=== PATIENT | female | born 1950 | race Caucasian/White ===

== ENCOUNTER 2021-05-01 12:16 | Emergency (ER) | payer MEDICARE, MEDICAID, SELFPAY ==
[2021-05-01 12:24] VITALS: BP 180/71; PULSE 60; RESP 17; TEMP 37.2; O2SAT 100
--- NOTE | 2021-05-01 12:45 | XR_ITS ---
WS: [email or web address] Right shoulder, 2 views, 05/01/2021 Clinical Data: pain Comparison: Right shoulder, 01/27/2016. Findings: No fractures or dislocations are seen. There is osteoarthritic change of the humeral head with a medi al spur. There is irregularity of the glenoid. The AC joint is normal. The adjacent right clavicle, r ight scapula and ribs are normal. The soft tissues are unremarkable. XR/XR shoulder RT min 2V* 26110 Impression: Osteoarthritis of the right shoulder joint.
--- NOTE | 2021-05-01 12:45 | XR_ITS ---
WS: [email or web address] Right forearm, AP and lateral views, 05/01/2021 Clinical Data: pain Comparison: None. Findings: No fractures or dislocations are seen. The soft tissues are normal. The visualized right wrist and el bow show no obvious abnormalities. The radius and ulna were demineralized. XR/XR forearm RT 2V 42426 Impression: Negative for right forearm fracture.
--- NOTE | 2021-05-01 12:45 | XR_ITS ---
WS: [email or web address] Right elbow, 2 views, 05/01/2021 Clinical Data: pain Comparison: None. Findings: No fractures or dislocations are seen. The radial head is normal. The soft tissues are unremarkable. XR/XR elbow RT 2V 74120 Impression: Negative right elbow.
--- NOTE | 2021-05-01 12:45 | XR_ITS ---
WS: [email or web address] Right arm and humerus, 2 views, AP and lateral views, 05/01/2021 Clinical Data: pain Comparison: None. Findings: No fractures or dislocations are seen. The shaft of the humerus is intact. The soft tissues are norm al. XR/[place] [address] Impression: Negative right arm and humerus.
--- NOTE | 2021-05-01 12:46 | ECG_ITS ---
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 Measurements Intervals [place] Rate: 68 P: 60 DC: 160 QRS: -3 QRSD: 154 T: 21 QT: 415 QTc: 443 Interpretive Statements SINUS RHYTHM RIGHT BUNDLE BRANCH BLOCK [120+ ms QRS DURATION, UPRIGHT V1, 40+ ms S IN I/aVL/V4/V5/V6] Compared to ECG 02/26/2018 05:05:21 Sinus bradycardia no longer present Sinus arrhythmia no longer present Electronically Signed On 05-01-2021 20:46:27 ROLL ICER MACHINE by Ivan Weinstein M.D. [email or web address]
--- NOTE | 2021-05-01 13:15 | ED_ITS ---
HPI - General Adult General: Chief complaint: General Medical Stated complaint: R SIDED PAIN Time Seen by Provider: 05/01/21 12:23 History of Present Illness: Patient is a 70-year-old female history of residual right-sided deficit from prior stroke currently presenting to the emergency room at [facility] for complaints of 2 week of right arm pain and decreased range of motion. She was seen by two previous primary care provider at [facility] insisted coming to the emergency room for evaluation of her arms. Patient reports that her symptoms has been going on for the last 2 weeks. Patient reports pain in the right arm with decreased range of motion. In addition, patient report shortness of breath without any associated chest pain. Patient is on Plavix daily for heart. Onset: 2 weeks ago Duration:ongoing Location:home Severity:moderate Associated symptoms: Deny chest pain, dyspnea, nausea, rash, palpitations or vomiting Review of Systems Const: Denies: fever(s) or chills Eyes: Denies: change in vision ENMT: Denies: mouth pain Card: Denies: chest pain or palpitations Resp: Denies: dyspnea or non-productive cough GI: Denies: abdominal pain, nausea, vomiting or diarrhea : Denies: dysuria Musc: Reports: extremity pain (+R ) Skin/Breast: Denies: rash or new lesions Neuro: Denies: weakness in extremities Psych: Reports: other (Normal mood) Russel/Lymph: Denies: easy bruising Physical Exam Const: COMMON NORMALS: alert HENMT: COMMON NORMALS: atraumatic HEAD & SCALP: atraumatic MOUTH: moist mucous membranes not abnormal Eye: COMMON NORMALS: EOMs intact bilaterally and conjunctivae normal CONJUNCTIVA: Yes conjunctivae normal Neck/C-Spine: COMMON NORMALS: full ROM and supple Resp: COMMON NORMALS: normal respiratory effort and clear to auscultation bilaterally AUSCULTATION: clear to auscultation bilaterally Cardio: COMMON NORMALS: regular rate RATE: regular rate GI: COMMON NORMALS: Soft to palpation and non-tender PALPATION: Yes Soft to palpation Extremity: COMMON NORMALS: full ROM Neuro: SENSORIUM/ORIENTATION: Yes alert MOTOR EXAM: No Abnormal motor strength present and Other motor observations present (no focal motor deficits) Psych: COMMON NORMALS: speech normal SPEECH: Yes normal speech MOOD & AFFECT: Yes euthymic mood Course Vital Signs: Vital signs: Vital Signs Temperature 97.7 F 05/01/21 18:50 Pulse Rate 65 05/01/21 18:50 Respiratory Rate 18 05/01/21 18:50 Blood Pressure 131/63 05/01/21 18:50 Pulse Oximetry 98 05/01/21 18:50 [facility] - General Adult Medical Decision Making 70F w/ history of residual right-sided deficit from prior stroke presenting with L arm and dyspnea. Imaging studies negative. CTA negative for PE. DVT study negative. Doubt ACS/PE or other emergent causes of chest pain. No suspicion for aortic dissection given no widened mediastinum, 2+ upper extremity pulses, or tearing pain. No suspicion for PE given no pleuritic chest pain, recent immobilization or surgery hemoptysis, or other VTE risk factors. EKG is non- ischemic. XR normal. Rx: norflex, tylenol, lidocaine patch, and menthol PRN pain Disposition: Discharge. Patient counseled regarding diagnostic impression, treatment plan. Patient given ED strict return precautions to return for continuation, worsening, or development of new symptoms. Instructed to f/u w/ PCP regarding symptoms today. Patient verbalized understanding. Lab Data : 05/01/21 13:14 05/01/21 14:00 Radiology Impressions Elbow X-Ray 05/01/21 12:45 Impression: Negative right elbow. Forearm X-Ray 05/01/21 12:45 Impression: Negative for right forearm fracture. Humerus X-Ray 05/01/21 12:45 Impression: Negative right arm and humerus. Shoulder X-Ray 05/01/21 12:45 Impression: Osteoarthritis of the right shoulder joint. Venous Duplex 05/01/21 13:40 IMPRESSION: No evidence of deep vein thrombosis. Chest CTA 05/01/21 16:08 IMPRESSION: 1. Somewhat limited exam for evaluation of the subsegmental branch of the pulmonary arteries given body habitus and beam hardening artifact, however, exam is negative for large central or segmental branch pulmonary embolus. 2. Patchy bilateral atelectasis versus infiltrate. Laboratory Results WBC 9.0 10^3/uL (4.0-10.0) 05/01/21 13:14 RBC 4.17 10^6/uL (4.1-5.3) 05/01/21 13:14 Hgb 12.0 g/dL (11.5-15.3) 05/01/21 13:14 Hct 44.4 % (37.0-47.0) 05/01/21 13:14 MCV 106.5 fl (81-99) H 05/01/21 13:14 MCH 28.8 pg (28.0-34.0) 05/01/21 13:14 MCHC 27.0 g/dL (30.0-36.0) L 05/01/21 13:14 RDW 12.7 % (12.1-15.1) 05/01/21 13:14 Plt Count 175 10^3/cmm (130-400) 05/01/21 13:14 MPV 9.3 fL (7.4-10.4) 05/01/21 13:14 Neut % (Auto) 67.9 % 05/01/21 13:14 Lymph % (Auto) 24.1 % 05/01/21 13:14 [place] % (Auto) 6.3 % 05/01/21 13:14 Eos % (Auto) 1.0 % 05/01/21 13:14 Baso % (Auto) 0.4 % 05/01/21 13:14 Neut # (Auto) 6.12 10^3/uL (1.8-7.7) 05/01/21 13:14 Lymph # (Auto) 2.2 10^3/uL (0.8-4.8) 05/01/21 13:14 [place] # (Auto) 0.6 10^3/uL (0.2-0.9) 05/01/21 13:14 Eos # (Auto) 0.1 10^3/uL (0.0-0.8) 05/01/21 13:14 Baso # (Auto) 0.0 10^3/uL (0.0-0.1) 05/01/21 13:14 Nucleated RBC % (auto) 0 % 05/01/21 13:14 Nucleated RBCs # 0.0 /100WBC 05/01/21 13:14 D-Dimer 0.92 ug/mIFEU (0-0.59) H 05/01/21 15:25 Sodium 136 mmol/L (136-145) 05/01/21 14:00 Potassium 4.7 mmol/L (3.5-5.1) 05/01/21 14:00 Chloride 98 mmol/L (98-107) 05/01/21 14:00 Carbon Dioxide 32 mmol/L (22-29) H 05/01/21 14:00 Anion Gap 10.7 (5-19) 05/01/21 14:00 BUN 16 mg/dL (8-23) 05/01/21 14:00 Creatinine 1.0 mg/dL (0.5-0.9) H 05/01/21 14:00 GFR Calculation Not Reportable 05/01/21 14:00 Glucose 87 mg/dL (65-115) 05/01/21 14:00 Calculated Osmolality 283 mOsm/kg (285-295) L 05/01/21 14:00 Calcium 8.6 mg/dL (8.5-10.5) 05/01/21 14:00 Imaging Data Other Imaging: Radiologist's impression: [address] [address] [address] Scan Report Signed Patient: Monica Mccauley Unit #: [id number] : 1950 Age/Sex: 70 / F ADM Date: 05/01/21 Loc: ER Room/Bed: Attending Dr: Ordering Provider/Ordering MD: Jess Martinez MD Date of Service: 05/01/21 Procedure(s): CT angio chest PE protcl 44687 Accession Number(s): [id number] Report Number: [id number] PROCEDURE INFORMATION: Exam: CTA Chest With Contrast Exam date and time: 05/01/2021 4:08 PM Age: 70 years old Clinical indication: Shortness of breath; Patient HX: SOB; Additional info: Eval for pe TECHNIQUE: Imaging protocol: Computed tomographic angiography of the chest with contrast. 3D rendering (Not supervised by radiologist): MIP and/or 3D reconstructed images were created by the technologist. Radiation optimization: All CT scans at this facility use at least one of these dose optimization techniques: automated exposure control; mA and/or kV adjustment per patient size (includes targeted exams where dose is matched to clinical indication); or iterative reconstruction. Contrast material: OMNI 350; Contrast volume: 73 ml; Contrast route: INTRAVENOUS (IV);? COMPARISON: CR Chest 1 [place] [id number] 03/08/2018 6:19 AM RADIATION DOSE METRICS: Total DLP (mGy-cm): 513.06 FINDINGS: Pulmonary arteries: Somewhat limited exam for evaluation of the subsegmental branch of the pulmonary arteries given body habitus and beam hardening artifact, however, exam is negative for large central or segmental branch pulmonary embolus. Aorta: Unremarkable. No aortic aneurysm. No aortic dissection. Lungs: Patchy bilateral atelectasis versus infiltrate. Pleural spaces: Unremarkable. No pneumothorax. No pleural effusion. Heart: Unremarkable. No cardiomegaly. No pericardial effusion. Lymph nodes: Unremarkable. No enlarged lymph nodes. Bones/joints: Unremarkable. No acute fracture. Soft tissues: Unremarkable. CT/CT angio chest PE protcl 55711 IMPRESSION: 1. Somewhat limited exam for evaluation of the subsegmental branch of the pulmonary arteries given body habitus and beam hardening artifact, however, exam is negative for large central or segmental branch pulmonary embolus. 2. Patchy bilateral atelectasis versus infiltrate. ? Dictated By: Bautista Doty MD Signed By: Bautista Doty MD Signed Date/Time: 05/01/211903 DD/ [address] [place] [address] Ultrasound Report Signed Patient: Monica Mccauley Unit #: [id number] : 1950 Age/Sex: 70 / F ADM Date: 05/01/21 Loc: ER Room/Bed: Attending Dr: Ordering Provider/Ordering MD: Jess Martinez MD Date of Service: 05/01/21 Procedure(s): [place] [address] Accession Number(s): [id number] Report Number: [id number] PROCEDURE INFORMATION: Exam: US Duplex Right Lower Extremity Veins, Limited Exam date and time: 05/01/2021 1:40 PM Age: 70 years old Clinical indication: Pain; Arm, upper; Right; Additional info: Eval for any ue dvt TECHNIQUE: Imaging protocol: Real-time Duplex ultrasound of the Right Lower Extremity with 2-D garcia scale, color Doppler flow and spectral waveform analysis with image documentation. Limited exam was focused on the right lower extremity veins. COMPARISON: No relevant prior studies available. FINDINGS: Right deep veins: Unremarkable. The common femoral, femoral, proximal profunda femoral and popliteal veins are patent without thrombus. Normal Doppler waveforms. Normal compressibility and/or augmentation response.? Right superficial veins: Unremarkable. Saphenofemoral junction is patent without thrombus. Soft tissues: Unremarkable. US/[place] [address] IMPRESSION: No evidence of deep vein thrombosis. ? Dictated By: John Lundy DO Signed By: John Lundy DO Signed Date/Time: 05/01/21 1711 DD/ [address] [place] [address] XRay Report Signed Patient: Monica Mccauley Unit #: [id number] : 1950 Age/Sex: 70 / F ADM Date: 05/01/21 Loc: ER Room/Bed: Attending Dr: Ordering Provider/Ordering MD: Jess Martinez MD Date of Service: 05/01/21 Procedure(s): XR shoulder RT min 2V* 42451 Accession Number(s): [id number] Report Number: [id number] WS: [email or web address] Right shoulder, 2 views, 05/01/2021 Clinical Data: pain Comparison: Right shoulder, 01/27/2016. Findings: No fractures or dislocations are seen. There is osteoarthritic change of the humeral head with a medial spur. There is irregularity of the glenoid. The AC joint is normal. The adjacent right clavicle, right scapula and ribs are normal. The soft tissues are unremarkable. XR/XR shoulder RT min 2V* 49247 Impression: Osteoarthritis of the right shoulder joint. ? Dictated By: Litzy Haines MD Signed By: Litzy Haines MD Signed Date/Time: 05/01/21 1406 DD/ [address] [address] XRay Report Signed Patient: Monica Mccauley Unit #: [id number] : 1950 Age/Sex: 70 / F ADM Date: 05/01/21 Loc: ER Room/Bed: Attending Dr: Ordering Provider/Ordering MD: Jess Martinez MD Date of Service: 05/01/21 Procedure(s): [place] [address] Accession Number(s): [id number] Report Number: [id number] WS: [email or web address] Right arm and humerus, 2 views, AP and lateral views, 05/01/2021 Clinical Data: pain Comparison: None. Findings: No fractures or dislocations are seen.? The shaft of the humerus is intact. The soft tissues are normal. XR/[place] [address] Impression: Negative right arm and humerus. ? ? Dictated By: Litzy Haines MD Signed By: Litzy Haines MD Signed Date/Time: 05/01/21 [facility] DD/ [address] [place] [address] CT Scan Report Signed Patient: Monica Mccauley Unit #: [id number] : 1950 Age/Sex: 70 / F ADM Date: 05/01/21 Loc: ER Room/Bed: Attending Dr: Ordering Provider/Ordering MD: Jess Martinez MD Date of Service: 05/01/21 Procedure(s): CT angio chest PE protcl 61446 Accession Number(s): [id number] Report Number: [id number] PROCEDURE INFORMATION: Exam: CTA Chest With Contrast Exam date and time: 05/01/2021 4:08 PM Age: 70 years old Clinical indication: Shortness of breath; Patient HX: SOB; Additional info: Eval for pe TECHNIQUE: Imaging protocol: Computed tomographic angiography of the chest with contrast. 3D rendering (Not supervised by radiologist): MIP and/or 3D reconstructed images were created by the technologist. Radiation optimization: All CT scans at this facility use at least one of these dose optimization techniques: automated exposure control; mA and/or kV adjustment per patient size (includes targeted exams where dose is matched to clinical indication); or iterative reconstruction. Contrast material: OMNI 350; Contrast volume: 73 ml; Contrast route: INTRAVENOUS (IV);? COMPARISON: CR Chest 1 [place] [id number] 03/08/2018 6:19 AM RADIATION DOSE METRICS: Total DLP (mGy-cm): 513.06 FINDINGS: Pulmonary arteries: Somewhat limited exam for evaluation of the subsegmental branch of the pulmonary arteries given body habitus and beam hardening artifact, however, exam is negative for large central or segmental branch pulmonary embolus. Aorta: Unremarkable. No aortic aneurysm. No aortic dissection. Lungs: Patchy bilateral atelectasis versus infiltrate. Pleural spaces: Unremarkable. No pneumothorax. No pleural effusion. Heart: Unremarkable. No cardiomegaly. No pericardial effusion. Lymph nodes: Unremarkable. No enlarged lymph nodes. Bones/joints: Unremarkable. No acute fracture. Soft tissues: Unremarkable. CT/CT angio chest PE protcl 53203 IMPRESSION: 1. Somewhat limited exam for evaluation of the subsegmental branch of the pulmonary arteries given body habitus and beam hardening artifact, however, exam is negative for large central or segmental branch pulmonary embolus. 2. Patchy bilateral atelectasis versus infiltrate. ? Dictated By: Bautista oDty MD Signed By: Bautista Doty MD Signed Date/Time: 05/01/211903 DD/ 1608 Discharge Plan Discharge Condition: Stable Prescriptions: No Action Lasix 40 mg Tablet 40 mg PO DAILY 0RF calcium 600 mg Capsule 600 mg PO DAILY 0RF acetaminophen 325 mg Tablet 650 mg PO Q6H PRN (Reason: Pain) 0RF carvedilol 6.25 mg Tablet 6.25 mg PO BID 0RF Rx Instructions: must administer with a meal/food atorvastatin 10 mg Tablet 5 mg PO DAILY@1999 0RF Senna-S 8.6-50 mg Tablet 1 tab PO BID 0RF Plavix 75 mg Tablet 75 mg PO DAILY 0RF tramadol 50 mg Tablet 50 mg PO Q6H PRN (Reason: Pain) 0RF Xanax 0.25 mg Tablet 0.25 mg PO Q8H PRN (Reason: Anxiety) 0RF levothyroxine 125 mcg Tablet 125 mcg PO DAILY 0RF docusate sodium 100 mg Capsule 100 mg PO BID 0RF diltiazem HCl 240 mg Tablet Extended Release 24 Hr 240 mg PO DAILY 0RF Referrals: [facility] [Other] Coding Level of Care Code ED Data Warehouse Architect for Chg Fwd Exam Comprehensive
[2021-05-01 13:34] LABS: Basophils % 0.4 %; Eosinophils # 0.1 10^3/uL (0.0-0.8); Hematocrit 44.4 % (37.0-47.0); Lymphocytes # 2.2 10^3/uL (0.8-4.8); Lymphocytes % 24.1 %; Mean Corpuscular Hemoglobin 28.8 pg (28.0-34.0); Mean Corpuscular Volume 106.5 fl (81-99); Mean Platelet Volume 9.3 fL (7.4-10.4); Monocytes # 0.6 10^3/uL (0.2-0.9); Monocytes % 6.3 %; Neutrophils # 6.12 10^3/uL (1.8-7.7); Neutrophils % 67.9 %; Nucleated Red Blood Cells % 0 %; Platelet Count 175 10^3/cmm (130-400); Red Blood Count 4.17 10^6/uL (4.1-5.3); Red Cell Distribution Width 12.7 % (12.1-15.1)
--- NOTE | 2021-05-01 13:40 | USR_ITS ---
PROCEDURE INFORMATION: Exam: US Duplex Right Lower Extremity Veins, Limited Exam date and time: 05/01/2021 1:40 PM Age: 70 years old Clinical indication: Pain; Arm, upper; Right; Additional info: Eval for any ue dvt TECHNIQUE: Imaging protocol: Real-time Duplex ultrasound of the Right Lower Extremity with 2-D garcia scale, color Doppler flow and spectral waveform analysis with image documentation. Limited exam was focused on the right lower extremity veins. COMPARISON: No relevant prior studies available. FINDINGS: Right deep veins: Unremarkable. The common femoral, femoral, proximal profunda femoral and popliteal veins are patent without thrombus. Normal Doppler waveforms. Normal compressibility and/or augmentation response. Right superficial veins: Unremarkable. Saphenofemoral junction is patent without thrombus. Soft tissues: Unremarkable. US/[place] [address] IMPRESSION: No evidence of deep vein thrombosis.
[2021-05-01 14:27] LABS: Blood Urea Nitrogen 16 mg/dL (8-23); Calcium 8.6 mg/dL (8.5-10.5); Carbon Dioxide 32 mmol/L (22-29); Chloride 98 mmol/L (98-107); Glucose 87 mg/dL (65-115); Osmolality Calculated 283 mOsm/kg (285-295); Sodium 136 mmol/L (136-145)
[2021-05-01 14:28] LABS: Anion Gap 10.7 (5-19); Potassium 4.7 mmol/L (3.5-5.1)
[2021-05-01 15:55] LABS: D Dimer 0.92 ug/mIFEU (0-0.59)
--- NOTE | 2021-05-01 16:08 | CTR_ITS ---
PROCEDURE INFORMATION: Exam: CTA Chest With Contrast Exam date and time: 05/01/2021 4:08 PM Age: 70 years old Clinical indication: Shortness of breath; Patient HX: SOB; Additional info: Eval for pe TECHNIQUE: Imaging protocol: Computed tomographic angiography of the chest with contrast. 3D rendering (Not supervised by radiologist): MIP and/or 3D reconstructed images were created by the technologist. Radiation optimization: All CT scans at this facility use at least one of these dose optimization techniques: automated exposure control; mA and/or kV adjustment per patient size (includes targeted exams where dose is matched to clinical indication); or iterative reconstruction. Contrast material: OMNI 350; Contrast volume: 73 ml; Contrast route: INTRAVENOUS (IV); COMPARISON: CR Chest 1 [place] [id number] 03/08/2018 6:19 AM RADIATION DOSE METRICS: Total DLP (mGy-cm): 513.06 FINDINGS: Pulmonary arteries: Somewhat limited exam for evaluation of the subsegmental branch of the pulmonary arteries given body habitus and beam hardening artifact, however, exam is negative for large central or segmental branch pulmonary embolus. Aorta: Unremarkable. No aortic aneurysm. No aortic dissection. Lungs: Patchy bilateral atelectasis versus infiltrate. Pleural spaces: Unremarkable. No pneumothorax. No pleural effusion. Heart: Unremarkable. No cardiomegaly. No pericardial effusion. Lymph nodes: Unremarkable. No enlarged lymph nodes. Bones/joints: Unremarkable. No acute fracture. Soft tissues: Unremarkable. CT/CT angio chest PE protcl [id number] IMPRESSION: 1. Somewhat limited exam for evaluation of the subsegmental branch of the pulmonary arteries given body habitus and beam hardening artifact, however, exam is negative for large central or segmental branch pulmonary embolus. 2. Patchy bilateral atelectasis versus infiltrate.
[2021-05-01] MEDS: iohexol 350 mg/mL 100 mL Btl IV (18:36)
[2021-05-01 18:46] VITALS: RESP 20
[2021-05-01] MEDS: morphine 4 mg/mL SDV 1 mL IVP (18:46)
[2021-05-01 18:50] VITALS: BP 131/63; PULSE 65; RESP 18; TEMP 36.5; O2SAT 98
[2021-05-01 20:41] VITALS: BP 142/89; PULSE 67; RESP 20; TEMP 36.7; O2SAT 96
== END 2021-05-01 20:44 | disposition home or self-care (01) ==
PROVIDERS: Emergency Provider Emergency Medicine
DX: M79.601 Pain in right arm (principal); Z79.02 Long term (current) use of antithrombotics/antiplatelets
CPT/HCPCS: 71275; 73030; 73060; 73070; 73090; 80048; 85025; 85378; 93005; 93971; 96374; 99283; J2270; Q9967

== ENCOUNTER 2021-11-25 11:01 | Inpatient (IN) | payer MEDICARE, MEDICAID, SELFPAY ==
[2021-11-25] VITALS (35 sets, daily range): BP systolic 122–153; BP diastolic 60–85; PULSE 57–121; RESP 13–37; TEMP 36.6–36.9; O2SAT 80–98; BMI 45.7
--- NOTE | 2021-11-25 11:04 | XR_ITS ---
WS: [email or web address] XR chest 1V portable [id number] REASON FOR EXAM: dyspnea FINDINGS: There is significant tortuosity and ectasia of the thoracic aorta and cardiomegaly. There are reticular interstitial changes throughout both lungs with fluid in the minor fissure on the right. XR/XR chest 1V portable [id number] IMPRESSION: Abnormal chest most compatible with congestive heart failure.
--- NOTE | 2021-11-25 11:15 | CT_ITS ---
WS: [id number] CT CHEST ANGIOGRAPHY WITH REFORMATS HISTORY: hypoxemia, dyspnea TECHNIQUE: Contiguous axial images are obtained through the chest during arterial injection of intrav enous contrast. Images are reconstructed to evaluate the pulmonary arteries. MIP imaging also reviewe d. All CT scans at [facility] use at least one of these dose optimization techniques: automat ed exposure control; mA and/or kV adjustment per patient size (includes targeted exams where dose is matched to clinical indication); or iterative reconstruction. CONTRAST: Omnipaque 350; 95 mL IV. DLP: 468.01 mGy.cm COMPARISON: 05/01/2021 Limited evaluation of the chest and pulmonary arteries due to body habitus. There is significant cresencio fact through the chest secondary to enlarged body habitus. No large central pulmonary embolism is viktoriya ntified. Beyond the lobar branches the opacification is limited. Variable density within the arteries for which emboli cannot be excluded. There is also motion artifact. Pulmonary artery is top normal s ize. Atherosclerosis aorta. No aneurysmal dilatation. Study is inadequate to exclude aortic dissectio n. Heart is enlarged with mild RIGHT heart strain. Lung volumes are decreased due to poor inspiration. Bilateral multi lobar pulmonary opacifications wi th areas of atelectasis. No pneumothorax. Very small LEFT pleural effusion. No abnormality in the upper abdomen. Thoracic scoliosis. CT/CT angio chest PE protcl [id number] IMPRESSION: 1. Significantly limited evaluation of the thorax on this examination due to b kalyani habitus. 2. Centrally no large pulmonary embolism. 3. Mild pulmonary hypertension and RIGHT heart strain. 4. Multi lobar pulmonary opacifications. Probably combination of pneumonia, pn eumonitis and atelectasis. 5. Very small LEFT pleural effusion.
--- NOTE | 2021-11-25 11:19 | ED_ITS ---
HPI - General Adult General: Chief complaint: Shortness of Breath/Dyspnea Stated complaint: resp distress Time Seen by Provider: 11/25/21 11:04 History of Present Illness: Patient is a 71-year-old female with history of CHF, COPD, dementia, CAD and hypothyroidism who presents the emergency room for concerns respiratory distress. Per EMS, patient has been residing at a residential and over the last 3 days, patient has had increasing shortness of breath. Earlier today, EMS was called patient was brought to the emergency room. In route, EMS report the patient had an O2 sat in the low 80s that improved with DuoNeb and oxygen. On arrival, patient was noted to be satting 78% on room room air with good wavelength. Patient is placed on high flow with improvement in symptoms. Patient is AAO x1 to self only occasionally answer questions. Patient denies any chest pain, abdominal complaints 1 diarrhea melena hematochezia or complaints. Patient reports cough. Onset:3 days ago Duration:3 days Location:home Severity:moderate Associated symptoms: Reports dyspnea; Deny chest pain, nausea, rash, palpitations or vomiting Review of Systems Const: Denies: fever(s) or chills Eyes: Denies: change in vision ENMT: Denies: mouth pain Card: Denies: chest pain or palpitations Resp: Reports: dyspnea; Denies: non-productive cough GI: Denies: abdominal pain, nausea, vomiting or diarrhea : Denies: dysuria Musc: Denies: extremity pain Skin/Breast: Denies: rash or new lesions Neuro: Denies: weakness in extremities Psych: Reports: other (Normal mood) Russel/Lymph: Denies: easy bruising PFS ED 2 PFSH: Medical History CAD (coronary artery disease) CHF (congestive heart failure) COPD (chronic obstructive pulmonary disease) Hypothyroidism Social History Smoking and tobacco status: never smoked Alcohol intake: never Substance/Drug Use: never Physical Exam Const: COMMON NORMALS: alert HENMT: COMMON NORMALS: atraumatic HEAD & SCALP: atraumatic MOUTH: moist mucous membranes not abnormal Eye: COMMON NORMALS: EOMs intact bilaterally and conjunctivae normal CONJUNCTIVA: Yes conjunctivae normal Neck/C-Spine: COMMON NORMALS: full ROM and supple Resp: COMMON NORMALS: normal respiratory effort OTHER: + Coarse breath sounds bilaterally Cardio: COMMON NORMALS: regular rate RATE: regular rate GI: COMMON NORMALS: Soft to palpation and non-tender PALPATION: Yes Soft to palpation OTHER: No focal TTP. NO guarding rebound, guarding, rigidity. No CVA tenderness to percussion. Neg Leigh/Neg McBurney's point tenderness, no suprabupic tenderness to palpation. Extremity: COMMON NORMALS: full ROM Neuro: SENSORIUM/ORIENTATION: Yes alert MOTOR EXAM: No Abnormal motor strength present and Other motor observations present (no focal motor deficits) OTHER: AAO x1, occasionally answering questions, moving all extremities, cranial nerves II through XII grossly intact Psych: COMMON NORMALS: speech normal SPEECH: Yes normal speech MOOD & AFFECT: Yes euthymic mood Course Vital Signs: Vital signs: Vital Signs Pulse Rate 78 11/25/21 12:55 Respiratory Rate 28 H 11/25/21 12:55 Blood Pressure 134/68 11/25/21 11:20 Pulse Oximetry 96 11/25/21 12:55 Oxygen Delivery Me thod 11/25/21 12:55 Oxygen Flow Rate 50 11/25/21 12:00 Fraction of Inspir ed Oxygen 65 11/25/21 12:55 MDM - General Adult Medical Decision Making Patient is a 71-year-old female with history of CHF, COPD, dementia, CAD and hypothyroidism who presents the emergency room for concerns respiratory distress. On arrival, patient is noted to have coarse breath sounds bi laterally. Patient was satting at 78% on room air that improved to 90% on. X- ray chest is suspect CHF exacerbation. proBNP of 2338. Patient received 40 mg of Lasix. She has not switched to BiPAP given significant PCO2 retention of over 120. Patient comes to have continues to have intermittent confusion. Patient received DuoNeb and Solu-Medrol. I suspect that today's presentation is likely secondary to CHF and COPD exacerbation. Disposition: admission Lab Data : 11/25/21 11:25 11/25/21 11:25 Radiology Impressions Chest X-Ray 11/25/21 11:04 IMPRESSION: Abnormal chest most compatible with congestive heart failure. Laboratory Results WBC 7.8 10^3/uL (4.0-10.0) 11/25/21 11:25 RBC 3.93 10^6/uL (4.1-5.3) L 11/25/21 11:25 Hgb 10.7 g/dL (11.5-15.3) L 11/25/21 11:25 Hct 41.2 % (37.0-47.0) 11/25/21 11:25 MCV 104.8 fl (81-99) H 11/25/21 11:25 MCH 27.2 pg (28.0-34.0) L 11/25/21 11:25 MCHC 26.0 g/dL (30.0-36.0) L 11/25/21 11:25 RDW 12.6 % (12.1-15.1) 11/25/21 11:25 Plt Count 195 10^3/cmm (130-400) 11/25/21 11:25 MPV 8.7 fL (7.4-10.4) 11/25/21 11:25 Neut % (Auto) 67.2 % 11/25/21 11:25 Lymph % (Auto) 20.6 % 11/25/21 11:25 [place] % (Auto) 8.4 % 11/25/21 11:25 Eos % (Auto) 0.8 % 11/25/21 11:25 Baso % (Auto) 0.4 % 11/25/21 11:25 Neut # (Auto) 5.23 10^3/uL (1.8-7.7) 11/25/21 11:25 Lymph # (Auto) 1.6 10^3/uL (0.8-4.8) 11/25/21 11:25 [place] # (Auto) 0.7 10^3/uL (0.2-0.9) 11/25/21 11:25 Eos # (Auto) 0.1 10^3/uL (0.0-0.8) 11/25/21 11:25 Baso # (Auto) 0.0 10^3/uL (0.0-0.1) 11/25/21 11:25 Nucleated RBC % (auto) 0.3 % 11/25/21 11:25 Nucleated RBCs # 0.0 /100WBC 11/25/21 11:25 Specimen Type Arterial 11/25/21 12:08 Sample Site Radial, left 11/25/21 12:08 ABG pH 7.19 (7.35-7.45) L 11/25/21 12:08 ABG pCO2 124.0 mmHg (35-45) H* 11/25/21 12:08 ABG pO2 58.0 mmHg (80.0-100.0) L 11/25/21 12:08 ABG HCO3 47.0 mmol/L (22-26) H 11/25/21 12:08 ABG O2 Saturation 89.1 11/25/21 12:08 ABG Base Excess 14.7 mmol/L (-2.0-2.0) H 11/25/21 12:08 Carson Test Pos 11/25/21 12:08 A-a O2 Gradient 39.0 mmHg (5-10) H 11/25/21 12:08 Hematocrit 32.5 % (37-47) L 11/25/21 12:08 Hgb O2 Saturation 87.1 % (95-100) L 11/25/21 12:08 Carboxyhemoglobin 1.4 %THgb (0.4-20.1) 11/25/21 12:08 Methemoglobin 0.8 % (0.4-1.5) 11/25/21 12:08 Total Hemoglobin 10.6 g/dL (12-16) L 11/25/21 12:08 Sodium 142.0 mmol/L (131-143) 11/25/21 12:08 Potassium 4.5 mmol/L (3.5-5.0) 11/25/21 12:08 Glucose 85.0 mg/dL (70-115) 11/25/21 12:08 Ionized Calcium 1.2 mmol/L (1.1-1.4) 11/25/21 12:08 O2 Delivery Device Nc 11/25/21 12:08 O2 Liters/Min 50.0 % 11/25/21 12:08 FiO2 70.0 % 11/25/21 12:08 Technical Professional ID Amh 11/25/21 12:08 Sodium 138 mmol/L (136-145) 11/25/21 11:25 Potassium 4.9 mmol/L (3.5-5.1) 11/25/21 11:25 Chloride 90 mmol/L (98-107) L 11/25/21 11:25 Carbon Dioxide 41 mmol/L (22-29) H 11/25/21 11:25 Anion Gap 11.9 (5-19) 11/25/21 11:25 BUN 16 mg/dL (8-23) 11/25/21 11:25 Creatinine 1.4 mg/dL (0.5-0.9) H 11/25/21 11:25 GFR Calculation Not Reportable 11/25/21 11:25 Glucose 87 mg/dL (65-115) 11/25/21 11:25 Calculated Osmolality 287 mOsm/kg (285-295) 11/25/21 11:25 Calcium 8.9 mg/dL (8.5-10.5) 11/25/21 11:25 Total Bilirubin 0.3 mg/dL (0.15-1.2) 11/25/21 11:25 AST 11 U/L (0-32) 11/25/21 11:25 ALT 7 U/L (0-33) 11/25/21 11:25 Alkaline Phosphatase 90 U/L (35-105) 11/25/21 11:25 Troponin T Baseline 28 ng/L (0-10) H 11/25/21 11:25 NT-Pro-B Natriuret Pep 2338 pg/mL (0-125) H 11/25/21 11:25 Total Protein 8.5 g/dL (6.6-8.7) 11/25/21 11:25 Albumin 3.3 g/dL (3.5-5.2) L 11/25/21 11:25 Globulin 5.2 g/dL (1.3-4.6) H 11/25/21 11:25 Lipase 58 U/L (13-60) 11/25/21 11:25 Coronavirus 229E (PCR) Not detected (NOT DETECT) 11/25/21 11:30 SARS-CoV-2 (PCR) Not detected (NOT DETECT) 11/25/21 11:30 Imaging Data Other Imaging: Radiologist's impression: [address] [address] XRay Report Signed Patient: Monica Mccauley Unit #: [id number] : 1950 Age/Sex: 71 / F ADM Date: 11/25/21 Loc: ER Room/Bed: Attending Dr: Ordering Provider/Ordering MD: Jess Martinez MD Date of Service: 11/25/21 Procedure(s): XR chest 1V portable [id number] Accession Number(s): [id number] Report Number: [id number] WS: [id number] XR chest 1V portable [id number] REASON FOR EXAM: dyspnea FINDINGS: There is significant tortuosity and ectasia of the thoracic aorta and cardiomegaly. There are reticular interstitial changes throughout both lungs with fluid in the minor fissure on the right. XR/XR chest 1V portable [id number] IMPRESSION: Abnormal chest most compatible with congestive heart failure. ? ? Dictated By: Shree Mancera Jr, MD Signed By: Shree Mancera Jr, MD Signed Date/Time: 11/25/21 1236 DD/ [address] [address] [address] Scan Report Signed Patient: Monica Mccauley Unit #: [id number] : 1950 Age/Sex: 70 / F ADM Date: 05/01/21 Loc: ER Room/Bed: Attending Dr: Ordering Provider/Ordering MD: Jess Martinez MD Date of Service: 05/01/21 Procedure(s): CT angio chest PE protcl [id number] Accession Number(s): [id number] Report Number: [id number] PROCEDURE INFORMATION: Exam: CTA Chest With Contrast Exam date and time: 05/01/2021 4:08 PM Age: 70 years old Clinical indication: Shortness of breath; Patient HX: SOB; Additional info: Eval for pe TECHNIQUE: Imaging protocol: Computed tomographic angiography of the chest with contrast. 3D rendering (Not supervised by radiologist): MIP and/or 3D reconstructed images were created by the technologist. Radiation optimization: All CT scans at this facility use at least one of these dose optimization techniques: automated exposure control; mA and/or kV adjustment per patient size (includes targeted exams where dose is matched to clinical indication); or iterative reconstruction. Contrast material: OMNI 350; Contrast volume: 73 ml; Contrast route: INTRAVENOUS (IV);? COMPARISON: CR Chest 1 [place] [id number] 03/08/2018 6:19 AM RADIATION DOSE METRICS: Total DLP (mGy-cm): 513.06 FINDINGS: Pulmonary arteries: Somewhat limited exam for evaluation of the subsegmental branch of the pulmonary arteries given body habitus and beam hardening artifact, however, exam is negative for large central or segmental branch pulmonary embolus. Aorta: Unremarkable. No aortic aneurysm. No aortic dissection. Lungs: Patchy bilateral atelectasis versus infiltrate. Pleural spaces: Unremarkable. No pneumothorax. No pleural effusion. Heart: Unremarkable. No cardiomegaly. No pericardial effusion. Lymph nodes: Unremarkable. No enlarged lymph nodes. Bones/joints: Unremarkable. No acute fracture. Soft tissues: Unremarkable. CT/CT angio chest PE protcl [id number] IMPRESSION: 1. Somewhat limited exam for evaluation of the subsegmental branch of the pulmonary arteries given body habitus and beam hardening artifact, however, exam is negative for large central or segmental branch pulmonary embolus. 2. Patchy bilateral atelectasis versus infiltrate. ? Dictated By: Bautista Doty MD Signed By: Bautista Doty MD Signed Date/Time: 05/01/21 1908 DD/ 1608 Discharge Plan Discharge Patient Disposition: Admitted As Inpatient Clinical Impression: Hypercapnic respiratory failure, CHF exacerbation, DNR (do not resuscitate) Condition: Stable Coding Level of Care Code ED Corn Husker Machine Operator for Chg Fwd Exam Comprehensive
[2021-11-25 11:31] LABS: Basophils % 0.4 %; Eosinophils # 0.1 10^3/uL (0.0-0.8); Eosinophils % 0.8 %; Hematocrit 41.2 % (37.0-47.0); Hemoglobin 10.7 g/dL (11.5-15.3); Lymphocytes # 1.6 10^3/uL (0.8-4.8); Lymphocytes % 20.6 %; Mean Corpuscular Hemoglobin 27.2 pg (28.0-34.0); Mean Corpuscular Volume 104.8 fl (81-99); Mean Platelet Volume 8.7 fL (7.4-10.4); Monocytes # 0.7 10^3/uL (0.2-0.9); Monocytes % 8.4 %; Neutrophils # 5.23 10^3/uL (1.8-7.7); Neutrophils % 67.2 %; Nucleated Red Blood Cells % 0.3 %; Platelet Count 195 10^3/cmm (130-400); Red Blood Count 3.93 10^6/uL (4.1-5.3); Red Cell Distribution Width 12.6 % (12.1-15.1); White Blood Count 7.8 10^3/uL (4.0-10.0)
[2021-11-25 11:48] LABS: Troponin(5th) Baseline 28 ng/L (0-10)
[2021-11-25 11:56] LABS: Alanine Aminotransferase 7 U/L (0-33); Albumin Level 3.3 g/dL (3.5-5.2); Alkaline Phosphatase 90 U/L (35-105); Aspartate Amino Transferase 11 U/L (0-32); Blood Urea Nitrogen 16 mg/dL (8-23); Calcium 8.9 mg/dL (8.5-10.5); Chloride 90 mmol/L (98-107); Globulin 5.2 g/dL (1.3-4.6); Glucose 87 mg/dL (65-115); Lipase 58 U/L (13-60); NT Pro B Type Natriuretic Pept 2338 pg/mL (0-125); Osmolality Calculated 287 mOsm/kg (285-295); Sodium 138 mmol/L (136-145); Total Bilirubin 0.3 mg/dL (0.15-1.2); Total Protein 8.5 g/dL (6.6-8.7)
[2021-11-25 12:00] LABS: Anion Gap 11.9 (5-19); Potassium 4.9 mmol/L (3.5-5.1)
[2021-11-25] MEDS: ipratropium-albuterol 3 mL Neb INHALATION ×5 (12:00→21:09)
--- NOTE | 2021-11-25 12:01 | ECG_ITS ---
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 Measurements Intervals [place] Rate: 73 P: 50 CA: 163 QRS: -1 QRSD: 166 T: 30 QT: 410 QTc: 453 Interpretive Statements SINUS RHYTHM RIGHT BUNDLE BRANCH BLOCK Compared to ECG 05/01/2021 17:17:11 No significant changes Electronically Signed On 11-25-2021 18:03:35 CDT by Yoli Felton M.D. [id number]
[2021-11-25 12:05] LABS: Carbon Dioxide 41 mmol/L (22-29)
--- NOTE | 2021-11-25 12:12 | PC.PHAR ---
pt is from [place] [facility]-lloyd bazan nurse from [facility] states the pt didnt have any medications today
[2021-11-25 12:20] LABS: ABG PH Result 7.19 (7.35-7.45); Arterial Blood Gas Hematocrit 32.5 % (37-47); Base Excess ABG 14.7 mmol/L (-2.0-2.0); Blood Gas Allen Test Pos; Blood Gas Operator Identificat AMH; Blood Gas Sample Site Radial, left; Blood Gas Sample Type Arterial; Carboxyhemoglobin 1.4 %THgb (0.4-20.1); HGB O2 Sat 87.1 % (95-100); Ionized Calcium Level - ABG 1.2 mmol/L (1.1-1.4); Methemoglobin 0.8 % (0.4-1.5); Oxygen Device NC; Oxygen Saturation ABG 89.1; Potassium Level - ABG 4.5 mmol/L (3.5-5.0); Total Hemoglobin 10.6 g/dL (12-16)
[2021-11-25] MEDS: FUROsemide 10 mg/mL SDV 4mL 40 MG IVP ×2 (13:39→18:31)
[2021-11-25 13:46] LABS: Adenovirus Not Detected (NOT DETECT); Chlamydia Pneumoniae Not Detected (NOT DETECT); Coronavirus 229E,HKU1,NL63,OC4 Not Detected (NOT DETECT); Human Metapneumovirus Not Detected (NOT DETECT); Human Rhinovirus/Enterovirus Not Detected (NOT DETECT); Influenza A Not Detected (NOT DETECT); Influenza A H1 Not Detected (NOT DETECT); Influenza A H1-2009 Not Detected (NOT DETECT); Influenza A H3 Not Detected (NOT DETECT); Influenza B Not Detected (NOT DETECT); Mycoplasma Pneumoniae Not Detected (NOT DETECT); Parainfluenza Virus Type 1 Not Detected (NOT DETECT); Parainfluenza Virus Type 2 Not Detected (NOT DETECT); Parainfluenza Virus Type 3 Not Detected (NOT DETECT); Parainfluenza Virus Type 4 Not Detected (NOT DETECT); Respiratory Syncytial Virus A Not Detected (NOT DETECT); Respiratory Syncytial Virus B Not Detected (NOT DETECT); SARS-COV-2 Not Detected (NOT DETECT)
[2021-11-25] MEDS: iohexol 350 mg/mL 100 mL Btl IV (13:51)
[2021-11-25 14:07] LABS: Troponin 5 2HR 26.92 ng/L (0-10)
[2021-11-25 14:08] LABS: Troponin 5 2HR Delta -1.08 ABS# (0-10)
--- NOTE | 2021-11-25 14:20 | USCV_ITS ---
Monica Mccauley Age: 71 Gender: F : 1950 Exam Date: 11/25/2021 19:25 Ordering Phys: Hadley Mcallister MD Technologist: ANGELLA Exam Location: [facility] Indication: SOB, on CPAP in ER, sats down to 68%, morbid obesity. History of CVA over a year ago. In long- term care. BP: 126 / 60 HR: 77 Rhythm: Sinus Technical Quality: Poor because of body habitus even with [employer] MEASUREMENTS (Male / Female) Normal Values 2D ECHO LV Diastolic Diameter PLAX 5.0 cm 4.2 - 5.9 / 3.9 - 5.3 cm LV Systolic Diameter PLAX 3.4 cm IVS Diastolic Thickness 1.5 cm 0.6 - 1.0 / 0.6 - 0.9 cm IVS Systolic Thickness 2.0 cm LVPW Diastolic Thickness 1.5 cm 0.6 - 1.0 / 0.6 - 0.9 cm LVPW Systolic Thickness 2.2 cm LVOT Diameter 2.1 cm LV Ejection Fraction 2D Teich 59.2 % LV Ejection Fraction MOD 2C 52.2 % LV Ejection Fraction 2C AL 54.5 % LA Diameter 3.6 cm LA Width 4.5 cm LA Height 5.6 cm RA Width 3.2 cm RA Height 5.1 cm Aorta at Sinotubular Diameter 3.2 cm IVC Diameter 1.9 cm M-MODE Aortic Annulus Diameter 2.8 cm LA Ao Ratio MM 1.4 MV E Point Septal Separation 0.5 cm DOPPLER AV Peak Velocity 129.0 cm/s LVOT Peak Velocity 95.0 cm/s AV Area Cont Eq vti 2.7 cm squared AV Area Cont Eq pk 2.6 cm squared MV Area PHT 4.1 cm squared Mitral E to A Ratio 0.8 MV E' Velocity 41.5 cm/s Mitral E to MV E' Ratio 8.7 Mitral E to LV E' Lateral Ratio 8.0 Mitral E to LV E' Septal Ratio 9.8 TR Peak Velocity 288.0 cm/s TR Peak Gradient 33.2 mmHg TV Peak E Velocity 52.0 cm/s Right Atrial Pressure 5.0 mmHg Pulmonary Artery Systolic Pressu 38.2 mmHg PV Peak Velocity 104.0 cm/s RV Acceleration Time 0.1 s RV Ejection Time 0.3 s RV AcT/ET 0.2 FINDINGS Left Ventricle Left ventricle is normal in size. LV systolic function is normal with EF of 50 to 55%. Regional wall motion abnormalities cannot be accurately assessed because of poor ultrasonic windows. Grade 1 disatolic dysfunction Right Ventricle Grossly, RV is dilated Right Atrium Normal in size Left Atrium Normal in size Mitral Valve Grossly normal Aortic Valve Not well-visualized Tricuspid Valve Mild tricuspid regurgitation. RVSP is 35 to 40 mmHg. This is consistent with mild pulmonary hypertension Pulmonic Valve Not visualized Pericardium Normal Aorta Normal in size IVC CONCLUSIONS Technically limited quality echocardiogram because of poor ultrasonic windows. LV systolic function is normal with EF of 50 to 55%. Grade 1 diastolic dysfunction. Grossly RV is dilated. Mild tricuspid regurgitation. Comparison with prior echocardiogram from 2016 could not be done because of poor quality echoes. Ivan Weinstein MD (Electronically Signed) Final Date: 26 November 2021 18:10 S
--- NOTE | 2021-11-25 14:52 | PM.HP ---
Providers/Chief Complaint Admitting Physician: Hadley Mcallister MD Primary Care Provider: MALLORY Linares Chief Complaint: resp distress History of Present Illness Monica Mccauley is a 71 year old female with past medical history of hypertension COPD, hypothyroidism, heart failure, CAD, was brought in from the residential with chief complaint of worsening shortness of breath going on for the last 3 to 4 days, history taking has been difficult as the patient is currently on the BiPAP, and is having difficulty speaking. History has been with the help of chart review. In route, EMS report the patient had an O2 sat in the low 80s that improved with DuoNeb and oxygen.?On arrival, patient was noted to be satting 78% on room room air with good wavelength. She was placed on BiPAP. Pertinent imaging studies: CTA chest: Significantly limited evaluation of the thorax on this examination due to body habitus. Centrally no large pulmonary embolism.Mild pulmonary hypertension and RIGHT heart strain.Multi lobar pulmonary opacifications. Probably combination of pneumonia, pneumonitis and atelectasis. Very small LEFT pleural effusion. EKG : SR ,RBBB Pertinent labs: WBC 7.8 , H&H:10/41 , PLT : 195 , serum sodium 138 , serum potassium 4.9 , BUN and serum creatinine 16 and 1.4 Troponin trend: 28, 26, 29 , proBNP:2338 ABG: pH 7.19, PCO2 124, PO2 58, FiO2 70% Review of Systems General: Reports: 10 or more systems reviewed and unremarkable except in HPI and below Card: Reports: swelling of feet/ankles, dyspnea on exertion and orthopnea; Denies: palpitations or leg pain with exertion Resp: Reports: dyspnea; Denies: productive cough, wheezing or pain on inspiration GI: Denies: abdominal pain Medications/Allergies Home Medications Medication Instructions Recorded Confirmed Last Taken Type acetaminophen 325 mg tablet 650 mg PO Q6H PRN Pain 05/01/21 11/25/21 Unknown History alprazolam 0.25 mg tablet (Xanax) 0.25 mg PO Q8H PRN Anxiety 05/01/21 11/25/21 Unknown History atorvastatin 10 mg tablet 5 mg PO DAILY@199905/01/21 11/25/21 11/24/21 History carvedilol 6.25 mg tablet 6.25 mg PO BID@07,20 05/01/21 11/25/21 11/24/21 History clopidogrel 75 mg tablet (Plavix) 75 mg PO DAILY@05/01/21 11/25/21 11/24/21 History diltiazem HCl 240 mg 240 mg PO DAILY@05/01/21 11/25/21 11/24/21 History tablet,extended release 24 hr docusate sodium 100 mg capsule 100 mg PO BID@05/01/21 11/25/21 11/24/21 History furosemide 40 mg tablet (Lasix) 40 mg PO DAILY@05/01/21 11/25/21 11/24/21 History levothyroxine 125 mcg tablet 125 mcg PO DAILY@52905/01/21 11/25/21 05/01/21 History sennosides 8.6 mg-docusate sodium 1 tab PO BID@05/01/21 11/25/21 11/24/21 History 50 mg tablet (Senna-S) tramadol 50 mg tablet 50 mg PO Q6H PRN Pain 05/01/21 11/25/21 04/30/21 History albuterol sulfate 2.5 mg inhalation Q4H PRN Dyspnea 11/25/21 11/25/21 Unknown History camphor 4.7 %-eucalyptus oil 1.2 1 applic topical Q24H PRN 11/25/21 11/25/21 Unknown History %-menthol 2.6 % topical ointment prophylaxis (Vicks Vaporub) cyanocobalamin (vitamin B-12) 1,000 mcg PO DAILY@11/25/21 11/25/21 11/24/21 History 1,000 mcg tablet (Vitamin B-12) Allergies Allergy/AdvReac Type Severity Reaction Status Date / Time codeine Allergy Unknown Unknown Verified 11/25/21 11:36 PFSH Acute PFSH: Medical History CAD (coronary artery disease) CHF (congestive heart failure) COPD (chronic obstructive pulmonary disease) Hypothyroidism Social History Smoking and tobacco status: never smoked Alcohol intake: never Substance/Drug Use: never Vitals/I&O/Wt Last Vital Signs Pulse 68 11/25/21 14:33 Resp 28 H 11/25/21 12:55 BP 134/68 11/25/21 11:20 Pulse Ox 93 11/25/21 14:33 O2 Del Method 11/25/21 12:55 O2 Flow Rate 50 11/25/21 12:00 FiO2 60 11/25/21 14:33 Weight last 48 hrs Weight 117.027 kg Physical Exam Const: COMMON NORMALS: patient oriented x3 Resp: OTHER: Diminished air entry bilaterally, minimal expiratory wheezing. Cardio: COMMON NORMALS: regular rate, regular rhythm, S1 normal heart sound present, S2 normal heart sound present, No gallops present (Cardio), No murmurs present (Cardio), No rub (Cardio) and Peripheral pulses 2+ throughout RATE: regular rate RHYTHM: regular rhythm HEART SOUNDS: S1 normal heart sound present and S2 normal heart sound present PERIPHERAL PULSES: Peripheral pulses 2+ throughout GI: COMMON NORMALS: Normal to inspection, nondistended, normoactive bowel sounds present, Soft to palpation, non-tender, No hepatosplenomegaly present and no masses AUSCULTATION: Yes normoactive bowel sounds PALPATION: Yes Soft to palpation and Yes No hepatosplenomegaly present RECTAL EXAM: deferred Extremity: COMMON NORMALS: no clubbing, cyanosis or edema NARRATIVE EXTREMITY EXAM: 2+ bilateral pitting edema in both the lower extremity Neuro: COMMON NORMALS: patient oriented x3 Data : 11/25/21 11:25 11/25/21 11:25 A&P Assessment and plan (1) Respiratory failure with hypoxia and hypercapnia: Status: Acute (2) CHF exacerbation: Status: Acute (3) COPD (chronic obstructive pulmonary disease): Status: Acute (4) Hypothyroidism: Status: Acute Plan 71 year old female with past medical history of hypertension COPD, hypothyroidism, heart failure, CAD, was brought in from the residential with chief complaint of worsening shortness of breath going on for the last 3 to 4 days. Assessment: Acute on chronic hypoxic hypercapnic respiratory failure likely secondary to COPD exacerbation, decompensated heart failure, pneumonia. Decompensated heart failure LUCA on CKD likely secondary to cardiorenal syndrome Hypertension Hypothyroidism COPD Mild pulmonary hypertension Plan: Follow procalcitonin Sputum gram stain and culture COVID PCR is negative Continue ceftriaxone azithromycin for now Lasix 40 mg IV twice daily Solu-Medrol 60 twice daily Continue levothyroxine Continue Plavix, carvedilol, Cardizem Continue DuoNebs Continue BiPAP Monitor ABG CODE STATUS: AND DVT prophylaxis: On Lovenox Attestations Medical Necessity Statement*: Patient needs to be in hospital for management of respiratory failure. Time Spent in Patient Care: Greater than 35 minutes (>than 50% of time spent in counselling and/or direct pt care on unit). Critical Care Time: The high probability of a clinically significant, sudden or life threatening deterioration of the patient's [] system(s) required my full and direct attention, intervention and personal management. The critical care time is as shown. This time is in addition to time spent performing any reported procedures but includes the following: [x] Data and vital sign review and interpretation [x] Patient assessment, examination and intervention [x] Documentation [x] Medication orders and management Critical Care Time (min): 60 Coding Level of Care Code Acute Electrical Manufacturing Technician for Chg Fwd Diagnoses Respiratory failure with hypoxia and hypercapnia J96.91; J96.92 CHF exacerbation I50.9 COPD (chronic obstructive pulmonary disease) J44.9 Hypothyroidism E03.9
[2021-11-25] MEDS: cefTRIAXone 1,000 MG in sodium chloride 0.9% (plus) 50 ML 100 MG IV (16:21)
[2021-11-25] MEDS: enoxaparin 40 mg/0.4 mL Syringe SUBCUT (16:24)
[2021-11-25] MEDS: azithromycin 500 MG in sodium chloride 0.9% 250 ML 250 MG IV (16:26)
--- NOTE | 2021-11-25 17:05 | ECG_ITS ---
[facility] Test Date: 2021-11-25 Pat Name: Monica Mccauley Department: Room: [facility] Gender: Female Community Service Officer Coordinator: : 1950 Requested By: Jess Martinez Order Number: [id number] Reading MD: Yoli Felton M.D. Measurements Intervals [place] Rate: 76 P: 40 AL: 153 QRS: -6 QRSD: 158 T: 35 QT: 407 QTc: 460 Interpretive Statements SINUS RHYTHM RIGHT BUNDLE BRANCH BLOCK Compared to ECG 11/25/2021 12:01:41 No significant change Electronically Signed On 11-26-2021 9:42:46 CDT by Yoli Felton M.D. [id number]
[2021-11-25 17:59] LABS: Troponin 5 6HR 29.87 ng/L (0-10)
[2021-11-25 18:01] LABS: Troponin 5 6HR Delta 1.87 ng/L (0-12)
--- NOTE | 2021-11-25 21:05 | PC.NURSE ---
Pt. arrived from ER. Pt. seems confused due to responses however may be difficult to determine orientation due to bulgarian being her 1st language. Able to convey needs in chilean at this time. Bipap in place per RT
[2021-11-25 22:28] LABS: ABG PH Result 7.24 (7.35-7.45); Alveolar-Arterial Oxygen Gradi 29.3 mmHg (5-10); Base Excess ABG 14.8 mmol/L (-2.0-2.0); Blood Gas Allen Test Pos; Blood Gas Operator Identificat MONRO; Blood Gas Sample Site Radial, left; Blood Gas Sample Type Arterial; Carboxyhemoglobin 1.2 %THgb (0.4-20.1); HCO3 ABG 45.7 mmol/L (22-26); HGB O2 Sat 95.5 % (95-100); Ionized Calcium Level - ABG 1.1 mmol/L (1.1-1.4); Methemoglobin < 0.0 % (0.4-1.5); Oxygen Device BIPAP; Oxygen Saturation ABG 96.3; PO2 ABG 79.6 mmHg (80.0-100.0); Potassium Level - ABG 5.1 mmol/L (3.5-5.0); Total Hemoglobin 10.4 g/dL (12-16)
--- NOTE | 2021-11-25 23:45 | PC.NURSE ---
Pt. convulsing and have seizure like activity. Lasted about 1 minute. Now has stopped Dr. Trevizo at bedside.
--- NOTE | 2021-11-25 23:52 | ECG_ITS ---
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 Measurements Intervals [place] Rate: 72 P: 43 OK: 154 QRS: -6 QRSD: 161 T: 48 QT: 428 QTc: 470 Interpretive Statements SINUS RHYTHM INTRAVENTRICULAR CONDUCTION DELAY [130+ ms QRS DURATION] Compared to ECG 11/25/2021 21:19:39 No significant changes Electronically Signed On 11-27-2021 10:37:03 CDT by Ivan Weinstein M.D. [id number]
[2021-11-26] VITALS (233 sets, daily range): BP systolic 91–172; BP diastolic 40–102; PULSE 51–113; RESP 13–36; TEMP 36.6; O2SAT 84–100
[2021-11-26] MEDS: FUROsemide 10 mg/mL SDV 4mL 40 MG IVP ×3 (00:30→17:25)
[2021-11-26 00:49] LABS: Lactate (Lactic Acid level) 1.4 mmol/L (0.5-2.2)
[2021-11-26 01:01] LABS: Alanine Aminotransferase 6 U/L (0-33); Alkaline Phosphatase 82 U/L (35-105); Anion Gap 13.9 (5-19); Aspartate Amino Transferase 9 U/L (0-32); Blood Urea Nitrogen 19 mg/dL (8-23); Calcium 8.2 mg/dL (8.5-10.5); Carbon Dioxide 40 mmol/L (22-29); Chloride 89 mmol/L (98-107); Globulin 4.3 g/dL (1.3-4.6); Glucose 118 mg/dL (65-115); Osmolality Calculated 289 mOsm/kg (285-295); Potassium 4.9 mmol/L (3.5-5.1); Sodium 138 mmol/L (136-145); Thyroid Stimulating Hormone 1.52 uIU/mL (0.27-4.20); Total Bilirubin 0.2 mg/dL (0.15-1.2); Total Protein 7.3 g/dL (6.6-8.7)
[2021-11-26] MEDS: ipratropium-albuterol 3 mL Neb INHALATION ×7 (01:01→23:57)
[2021-11-26 01:05] LABS: Procalcitonin 0.29 ng/mL (0-0.5)
--- NOTE | 2021-11-26 01:15 | PC.NURSE ---
Pt. is being prepared for CT at this time. Becoming very confused and combative at this time. Pulling at bipap and iv's. Called Dr. Trevizo and informed of patient status and unable to perform CT at this time. Dr. Trevizo stated to put CT on hold and to start precedex drip.
[2021-11-26] MEDS: dexmedeTOMIDine 0.9 % NaCL 400 MCG/100 ML PREMIX IV ×2 (01:22→14:59)
[2021-11-26 03:35] LABS: ABG PH Result 7.32 (7.35-7.45); Base Excess ABG 16.6 mmol/L (-2.0-2.0); Blood Gas Allen Test Pos; HCO3 ABG 45.8 mmol/L (22-26); Ionized Calcium Level - ABG 1.1 mmol/L (1.1-1.4)
[2021-11-26 03:36] LABS: Alveolar-Arterial Oxygen Gradi 16.1 mmHg (5-10); Blood Gas Sample Site Radial, right; Oxygen Device BIPAP
[2021-11-26 04:28] LABS: Hematocrit 34.7 % (37.0-47.0); Hemoglobin 9.3 g/dL (11.5-15.3); Lymphocytes # 0.8 10^3/uL (0.8-4.8); Lymphocytes % 16.4 %; Mean Corpuscular HGB Conc 26.8 g/dL (30.0-36.0); Mean Corpuscular Hemoglobin 27.4 pg (28.0-34.0); Mean Corpuscular Volume 102.4 fl (81-99); Mean Platelet Volume 9.4 fL (7.4-10.4); Monocytes % 0.8 %; Neutrophils # 4.13 10^3/uL (1.8-7.7); Neutrophils % 81.4 %; Nucleated Red Blood Cells % 0.4 %; Platelet Count 175 10^3/cmm (130-400); Red Blood Count 3.39 10^6/uL (4.1-5.3); Red Cell Distribution Width 12.8 % (12.1-15.1); White Blood Count 5.1 10^3/uL (4.0-10.0)
[2021-11-26 04:30] LABS: Alanine Aminotransferase 7 U/L (0-33); Albumin Level 2.5 g/dL (3.5-5.2); Alkaline Phosphatase 78 U/L (35-105); Blood Urea Nitrogen 21 mg/dL (8-23); Calcium 8.2 mg/dL (8.5-10.5); Carbon Dioxide 36 mmol/L (22-29); Chloride 91 mmol/L (98-107); Globulin 4.5 g/dL (1.3-4.6); Glucose 116 mg/dL (65-115); Osmolality Calculated 294 mOsm/kg (285-295); Sodium 140 mmol/L (136-145); Total Bilirubin 0.3 mg/dL (0.15-1.2)
[2021-11-26 04:31] LABS: Anion Gap 18.4 (5-19); Potassium 5.4 mmol/L (3.5-5.1)
[2021-11-26 04:32] LABS: Aspartate Amino Transferase 11 U/L (0-32)
[2021-11-26] MEDS: perflutren protein-a microsphr 0.22 mg/mL SDV 3 mL IV (05:38)
--- NOTE | 2021-11-26 06:50 | PM.CCNAC ---
Critical Care Event Note The high probability of a clinically significant, sudden or life threatening deterioration of the patient's [] system(s) required my full and direct attention, intervention and personal management. The critical care time is as shown. This time is in addition to time spent performing any reported procedures but includes the following: [x] Data and vital sign review and interpretation [x] Patient assessment, examination and intervention [x] Documentation [x] Medication orders and management Critical Care Time Code activated: No Critical Care Time (min): 25 Additional information about critical care time: At roughly 1130, I was advised by nursing staff patient was seizing, episode lasted 30 seconds, was noticed by respiratory and nursing staff, she had tonic-clonic seizure bilateral upper extremities, no aspiration event, when I arrived, she was on BiPAP, postictal, did not open her eyes, but confused, placed her on seizure precautions, 1 gram of Keppra given, however after Keppra was given patient mentation significantly improved, she actually has been much more alert and awake since her admission, her PCO2 has improved to 89.5, Coding Level of Care Code Acute Telephone Order Clerk for Brian Gonzales
--- NOTE | 2021-11-26 10:27 | PC.CHAP ---
Pastoral Care Encounter/Spiritual Assessment Type of Contact [] Declined aircraft manager visit [] Patient/Family/Request visit [] Outpatient visit [] Follow-up visit [] Physician referral [] Code/Alert [x] Routine visit [] Staff referral [] Actively dying [x] Patient sleeping [] Family support [] [] Out of room [] Palliative care [] [] Receiving care in room [] Pre-surgical visit [] Trauma [] Long length of stay [x] ICU visit [] Other: Relational/Emotional Strength [] Patient feels connected with others/family/visitors/staff [] Distress [] Loneliness/isolation [] Abandonment Spirituality of Patient [] Person of [place] [] Attends Sabianism of their [place] [] Believes in Prayer [] Reads Bible or Jehovah'S Witness materials [] There are Spiritual issues to be addressed Utilities Estimator And Drafter Interventions [x] Prayer [] Active listening [] Non-anxious presence [] Spiritual/emotional support [] Crisis/trauma care [] Spiritual counseling [] Bereavement support [] Provided bereavement packet [] Provided Bible/devotional materials [] Provided toy/stuffed animal, coloring book to patient or family member [] Provided Communion [] Anointing/[place] [] Salvation [x] Completed spiritual assessment [] Other: Impact on Illness or Injury [] Angry [] Fearful [] Anxious [] Often cries [] Exhaustion [] Unable to work [] Unable to attend voodoo [] Unable to walk/stand [] Unable to read [] Unable to drive [] Unable to eat/drink [] Unable to sleep [] Unable to be with family [] Patient intubated [] Other: Summary Time spent with patient
--- NOTE | 2021-11-26 11:39 | P.PN_ITS ---
Subjective Subjective: Patient was seen and examined this morning, overnight event noted, she had likely 1 episode of seizure overnight. For which she was given Ativan as well as 1 g loading dose of Keppra. This morning when I examined the patient patient has been extremely agitated, pulling the BiPAP off, she had to be kept on Precedex.Steroid dose has been decreased, possibly may be contributing to some agitation. A.m. lab has shown hyperkalemia: Dextrose and insulin will be given. Medications: Medication Review Details: Generic Name Dose Route Start Last Admin Trade Name Amanq PRN Reason Stop Dose Admin Albuterol/Ipratrop ium 3 ml 11/25/21 16:00 11/26/21 08:29 Ipratropium-Albu terol 3 Ml Neb INHALATION 3 ml Q4H.RESPIRATORY S CH Administration Carvedilol 6.25 mg 11/25/21 18:00 11/26/21 10:00 Carvedilol 6.25 Mg Tablet PO Not Given BID HOA Clopidogrel Bisulf ate 75 mg 11/26/21 09:00 11/26/21 10:00 Clopidogrel 75 M g Tablet PO Not Given DAILY HOA Docusate Sodium 100 mg 11/25/21 18:00 11/26/21 10:00 Docusate Sodium 100 Mg Capsule PO Not Given BID HOA Enoxaparin Sodium 40 mg 11/25/21 15:00 11/25/21 16:24 Enoxaparin 40 Mg /0.4 Ml Syringe SUBCUT 40 mg Q24H HOA Administration Furosemide 40 mg 11/25/21 18:00 11/26/21 09:53 Furosemide 10 Mg /Ml Sdv 4ml IVP 40 mg BID HOA Administration Ceftriaxone Sodium 1,000 mg/ 50 mls @ 100 mls/ hr 11/25/21 14:30 11/25/21 16:51 Sodium Chloride IV Infused Q24H HOA Infusion Protocol Azithromycin 500 m g/ Sodium 250 mls @ 250 mls /hr 11/25/21 15:00 11/25/21 17:26 Chloride IV Infused Q24H HOA Infusion Protocol dexmedeTOMIDine 0. 9 % NaCL 400 mcg in 100 ml s @ 0 mls/hr 11/26/21 01:15 11/26/21 09:41 Precedex IV 0.1 mcg/kg/hr .Q0M HOA 2.93 mls/hr Titration Protocol Per Protocol Levothyroxine Sodi um 125 mcg 11/26/21 06:00 11/26/21 05:58 Levothyroxine 12 5 Mcg Tablet PO Not Given QAM HOA Methylprednisolone Sodium Succinate 60 mg 11/25/21 18:00 11/26/21 09:53 Methylprednisolo ne Sod Succ 125 Mg /2 Ml Inj IVP 60 mg BID HOA Administration Vitals/I&O/Wt Last Vital Signs Temp 97.8 F 11/25/21 23:25 Pulse 83 11/26/21 11:25 Resp 21 H 11/26/21 11:25 BP 142/63 11/26/21 11:25 Pulse Ox 90 11/26/21 11:25 O2 Del Method 11/26/21 11:25 O2 Flow Rate 50 11/25/21 12:00 FiO2 45 11/26/21 08:29 11/25/21 11/26/21 11/26/21 22:59 06:59 14:59 Intake Total 300 / 300 39.361 / 339.361 21.743 / 21.743 Output Total 850 / 850 Balance 300 / 300 -810.639 / -510.639 21.743 / 21.743 Weight last 48 hrs Weight 119.295 kg Weight 117.027 kg Physical Exam Narrative: Extremely agitated. Resp: OTHER: Diminished air entry bilaterally, minimal expiratory wheezing. Cardio: COMMON NORMALS: regular rate, regular rhythm, S1 normal heart sound present, S2 normal heart sound present, No gallops present (Cardio), No murmurs present (Cardio), No rub (Cardio) and Peripheral pulses 2+ throughout RATE: regular rate RHYTHM: regular rhythm HEART SOUNDS: S1 normal heart sound present and S2 normal heart sound present PERIPHERAL PULSES: Peripheral pulses 2+ throughout GI: COMMON NORMALS: Normal to inspection, nondistended, normoactive bowel sounds present, Soft to palpation, non-tender, No hepatosplenomegaly present and no masses AUSCULTATION: Yes normoactive bowel sounds PALPATION: Yes Soft to palpation and Yes No hepatosplenomegaly present RECTAL EXAM: deferred Extremity: COMMON NORMALS: no clubbing, cyanosis or edema NARRATIVE EXTREMITY EXAM: 2+ bilateral pitting edema in both the lower extremity Urinary Catheter Management: Baker: Cath Placed During This Visit: yes Reason for Continuing Indwelling Catheter: Accurate Measurement of Urinary Output in Critically Ill Patients Urinary Catheter Date of Insertion: 11/26/21 Urinary Catheter Time of Insertion: 21:50 Data : 11/26/21 03:35 11/26/21 03:31 Micro: Microbiology 11/25/21 17:32 Blood Culture - Preliminary Blood SPECIMEN COLLECTED 11/25/21 17:17 Blood Culture - Preliminary Blood SPECIMEN COLLECTED A&P Assessment and plan (1) Respiratory failure with hypoxia and hypercapnia: Status: Acute (2) CHF exacerbation: Status: Acute (3) COPD (chronic obstructive pulmonary disease): Status: Acute (4) Hypothyroidism: Status: Acute Plan 71 year old female with past medical history of hypertension COPD, hypothyroidism, heart failure, CAD, [facility] with chief complaint of worsening shortness of breath going on for the last 3 to 4 days. Assessment: Acute on chronic hypoxic hypercapnic respiratory failure likely secondary to COPD exacerbation, decompensated heart failure, pneumonia. Decompensated heart failure Likely LUCA on CKD likely secondary to cardiorenal syndrome Hypertension Hypothyroidism COPD Mild pulmonary hypertension Possible seizure: Possibly precipitated by hypercapnia Hyperkalemia Plan: CTA chest:?Significantly limited evaluation of the thorax on this examination due to body habitus. Centrally no large pulmonary embolism.Mild pulmonary hypertension and RIGHT heart strain.Multi lobar pulmonary opacifications. Probably combination of pneumonia, pneumonitis and atelectasis. Very small LEFT pleural effusion. CT head without contrast: 2D echo: Procalcitonin: 0.29 TSH:1.52 Sputum gram stain and culture Blood culture: COVID PCR is negative Continue ceftriaxone azithromycin for now Lasix 40 mg IV twice daily Continue levothyroxine Continue Plavix, carvedilol, Cardizem Continue DuoNebs Continue BiPAP Monitor ABG CODE STATUS: AND DVT prophylaxis: On Lovenox Attestations Medical Necessity Statement*: Patient is still in hospital for management of hypercapnic respiratory failure Time Spent in Patient Care: Greater than 35 minutes (>than 50% of time spent in counselling and/or direct pt care on unit) . Critical Care Time: The high probability of a clinically significant, sudden or life threatening deterioration of the patient's [] system(s) required my full and direct attention, intervention and personal management. The critical care time is as shown. This time is in addition to time spent performing any reported procedures but includes the following: [x] Data and vital sign review and interpretation [x] Patient assessment, examination and intervention [x] Documentation [x] Medication orders and management Critical Care Time (min): 30 Coding Level of Care Code Acute Senior It Security Analyst for Chg Fwd Exam Expanded Problem Focused Diagnoses Respiratory failure with hypoxia and hypercapnia J96.91; J96.92 CHF exacerbation I50.9 COPD (chronic obstructive pulmonary disease) J44.9 Hypothyroidism E03.9
[2021-11-26] MEDS: insulin regular-human 5 UNIT in SYRINGE 1 EACH 1 UNIT IVP (14:37)
[2021-11-26] MEDS: enoxaparin 40 mg/0.4 mL Syringe SUBCUT (14:37)
[2021-11-26] MEDS: dextrose 50% syringe 50 mL IVP (14:38)
[2021-11-26] MEDS: cefTRIAXone 1,000 MG in sodium chloride 0.9% (plus) 50 ML 100 MG IV (14:38)
[2021-11-26] MEDS: azithromycin 500 MG in sodium chloride 0.9% 250 ML 250 MG IV (17:05)
[2021-11-26] MEDS: carvedilol 6.25 mg Tablet PO (17:25)
[2021-11-26] MEDS: docusate sodium 100 mg Capsule PO (17:25)
[2021-11-27] VITALS (216 sets, daily range): BP systolic 105–179; BP diastolic 52–130; PULSE 51–141; RESP 12–28; TEMP 36.6–37.2; O2SAT 68–100
--- NOTE | 2021-11-27 00:03 | CT_ITS ---
WS: [id number] CT HEAD TECHNIQUE: Noncontrast CT of the head obtained from the skullbase to the vertex. CLINICAL INFORMATION: seizrue COMPARISON: CT 12 15,018 DLP: 1121.[address] scans at [facility] use at least one of these dose optimization techniques: automated e xposure control; mA and/or kV adjustment per patient size (includes targeted exams where dose is matc hed to clinical indication); or iterative reconstruction. FINDINGS: No evidence of intracranial hemorrhage or mass effect. Ventricular system and basal cisterns are zuluaga nt. Moderate small vessel changes with moderate parenchymal volume loss. No extra-axial fluid collect ions. 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 Ex vacuo dilatation L EFT lateral ventricle. Chronic infarcts in the LEFT rai radiata. Chronic lacunar infarct RIGHT martínez lamus. Moderate cerebellar parenchymal volume loss. Cavernous carotid calcification. Partial opacification mastoid air cells bilaterally. Mucosal thickening sphenoid sinuses. CT/CT head wo con* [id number] IMPRESSION: 1. No evidence of intracranial hemorrhage or mass effect. 2. Moderate small vessel changes. Moderate parenchymal volume loss. 3. Chronic infarcts as described above. 4. No acute intracranial findings.
[2021-11-27 03:53] LABS: Hemoglobin 9.7 g/dL (11.5-15.3); Lymphocytes % 21.6 %; Mean Corpuscular HGB Conc 28.5 g/dL (30.0-36.0); Mean Corpuscular Hemoglobin 27.5 pg (28.0-34.0); Mean Platelet Volume 9.1 fL (7.4-10.4); Monocytes # 0.3 10^3/uL (0.2-0.9); Monocytes % 7.5 %; Neutrophils # 3.17 10^3/uL (1.8-7.7); Nucleated Red Blood Cells % 0 %; Platelet Count 216 10^3/cmm (130-400); Red Blood Count 3.53 10^6/uL (4.1-5.3); Red Cell Distribution Width 13.3 % (12.1-15.1); White Blood Count 4.5 10^3/uL (4.0-10.0)
[2021-11-27 04:19] LABS: Alanine Aminotransferase 6 U/L (0-33); Albumin Level 3.1 g/dL (3.5-5.2); Alkaline Phosphatase 72 U/L (35-105); Anion Gap 13.6 (5-19); Aspartate Amino Transferase 12 U/L (0-32); Blood Urea Nitrogen 27 mg/dL (8-23); Calcium 8.5 mg/dL (8.5-10.5); Chloride 89 mmol/L (98-107); Globulin 4.1 g/dL (1.3-4.6); Glucose 99 mg/dL (65-115); Mean Corpuscular Volume 96.3 fl (81-99); Osmolality Calculated 301 mOsm/kg (285-295); Potassium 4.6 mmol/L (3.5-5.1); Sodium 143 mmol/L (136-145); Total Bilirubin 0.2 mg/dL (0.15-1.2); Total Protein 7.2 g/dL (6.6-8.7)
[2021-11-27] MEDS: ipratropium-albuterol 3 mL Neb INHALATION ×6 (04:38→23:55)
[2021-11-27 04:39] LABS: Creatinine Clr Calc Pharmacy 48.8818
[2021-11-27 04:41] LABS: Carbon Dioxide 45 mmol/L (22-29)
[2021-11-27 05:48] LABS: Alveolar-Arterial Oxygen Gradi 16.4 mmHg (5-10); Arterial Blood Gas Hematocrit 41.1 % (37-47); Base Excess ABG 20.5 mmol/L (-2.0-2.0); Blood Gas Allen Test Pos; Blood Gas Operator Identificat JB; Blood Gas Sample Site Radial, right; Blood Gas Sample Type Arterial; Carboxyhemoglobin 1.2 %THgb (0.4-20.1); HCO3 ABG 47.4 mmol/L (22-26); HGB O2 Sat 90.3 % (95-100); Methemoglobin 0.7 % (0.4-1.5); Oxygen Device BIPAP; PO2 ABG 58.6 mmHg (80.0-100.0); Potassium Level - ABG 4.1 mmol/L (3.5-5.0); Total Hemoglobin 13.4 g/dL (12-16)
[2021-11-27 05:59] LABS: ABG PCO2 61.3 mmHg (35-45)
[2021-11-27] MEDS: levothyroxine 125 mcg Tablet PO (08:01)
[2021-11-27] MEDS: docusate sodium 100 mg Capsule PO (08:09)
[2021-11-27] MEDS: clopidogrel 75 mg Tablet PO (08:09)
[2021-11-27] MEDS: carvedilol 6.25 mg Tablet PO ×2 (08:10→17:25)
[2021-11-27] MEDS: FUROsemide 10 mg/mL SDV 4mL 40 MG IVP (08:10)
[2021-11-27 10:40] LABS: Blood Gas Operator Identificat MONRO; Blood Gas Sample Type Arterial; Carboxyhemoglobin 1.3 %THgb (0.4-20.1); HGB O2 Sat 95.7 % (95-100); Oxygen Saturation ABG 97.9; PO2 ABG 91.5 mmHg (80.0-100.0); Potassium Level - ABG 4.7 mmol/L (3.5-5.0); Total Hemoglobin 9.8 g/dL (12-16)
[2021-11-27] MEDS: acetaZOLAMIDE 250 mg Tablet PO (10:46)
[2021-11-27 10:47] LABS: ABG PCO2 89.5 mmHg (35-45)
[2021-11-27] MEDS: cefTRIAXone 1,000 MG in sodium chloride 0.9% (plus) 50 ML 100 MG IV (14:23)
[2021-11-27] MEDS: enoxaparin 40 mg/0.4 mL Syringe SUBCUT (14:24)
--- NOTE | 2021-11-27 15:03 | P.PN_ITS ---
Subjective Subjective: Patient was seen and examined this morning, she was in pleasant mood, was holding good conversation, saturating well on 3 Ls supplemental oxygen. Has good urine output. Her other vitals and labs have been reviewed. Medications: Medication Review Details: Generic Name Dose Route Start Last Admin Trade Name Corinne PRN Reason Stop Dose Admin Acetazolamide 250 mg 11/27/21 09:00 11/27/21 10:46 Acetazolamide 25 0 Mg Tablet PO 250 mg DAILY HOA Administration Albuterol/Ipratrop ium 3 ml 11/25/21 16:00 11/27/21 11:20 Ipratropium-Albu terol 3 Ml Neb INHALATION 3 ml Q4H.RESPIRATORY S CH Administration Carvedilol 6.25 mg 11/25/21 18:00 11/27/21 08:10 Carvedilol 6.25 Mg Tablet PO 6.25 mg BID HOA Administration Clopidogrel Bisulf ate 75 mg 11/26/21 09:00 11/27/21 08:09 Clopidogrel 75 M g Tablet PO 75 mg DAILY HOA Administration Docusate Sodium 100 mg 11/25/21 18:00 11/27/21 08:09 Docusate Sodium 100 Mg Capsule PO 100 mg BID HOA Administration Enoxaparin Sodium 40 mg 11/25/21 15:00 11/27/21 14:24 Enoxaparin 40 Mg /0.4 Ml Syringe SUBCUT 40 mg Q24H HOA Administration Ceftriaxone Sodium 1,000 mg/ 50 mls @ 100 mls/ hr 11/25/21 14:30 11/27/21 14:23 Sodium Chloride IV 100 mls/hr Q24H HOA Administration Protocol Azithromycin 500 m g/ Sodium 250 mls @ 250 mls /hr 11/25/21 15:00 11/26/21 18:18 Chloride IV Infused Q24H HOA Infusion Protocol dexmedeTOMIDine 0. 9 % NaCL 400 mcg in 100 ml s @ 0 mls/hr 11/26/21 01:15 11/27/21 06:06 Precedex IV 0 mcg/kg/hr .Q0M HOA 0 mls/hr Titration Protocol Per Protocol Levothyroxine Sodi um 125 mcg 11/26/21 06:00 11/27/21 08:01 Levothyroxine 12 5 Mcg Tablet PO 125 mcg QAM HOA Administration Methylprednisolone Sodium Succinate 40 mg 11/27/21 09:00 11/27/21 08:10 Methylprednisolo ne Sod Succ 40 Mg/ Ml Inj IVP 40 mg DAILY HOA Administration Vitals/I&O/Wt Last Vital Signs Temp 98.6 F 11/27/21 04:50 Pulse 77 11/27/21 13:40 Resp 12 11/27/21 12:50 BP 152/52 11/27/21 13:40 Pulse Ox 95 11/27/21 13:40 O2 Del Method 11/27/21 13:40 O2 Flow Rate 3 11/27/21 13:40 FiO2 36 11/27/21 06:00 11/27/21 11/27/21 11/27/21 06:59 14:59 22:59 Intake Total 56.160 / 525.251 150 / 150 Output Total 750 / 2100 Balance -693.840 / -1574.749 150 / 150 Weight last 48 hrs Weight 118.388 kg Weight 119.295 kg Physical Exam Narrative: Extremely agitated. Const: COMMON NORMALS: patient oriented x3 Resp: OTHER: Diminished air entry bilaterally, minimal expiratory wheezing. Cardio: COMMON NORMALS: regular rate, regular rhythm, S1 normal heart sound present, S2 normal heart sound present, No gallops present (Cardio), No murmurs present (Cardio), No rub (Cardio) and Peripheral pulses 2+ throughout RATE: regular rate RHYTHM: regular rhythm HEART SOUNDS: S1 normal heart sound present and S2 normal heart sound present PERIPHERAL PULSES: Peripheral p ulses 2+ throughout GI: COMMON NORMALS: Normal to inspection, nondistended, normoactive bowel sounds present, Soft to palpation, non-tender, No hepatosplenomegaly present and no masses AUSCULTATION: Yes normoactive bowel sounds PALPATION: Yes Soft to palpation and Yes No hepatosplenomegaly present RECTAL EXAM: deferred Extremity: COMMON NORMALS: no clubbing, cyanosis or edema NARRATIVE EXTREMI TY EXAM: 2+ bilateral pitting edema in both the lower extremity Neuro: COMMON NORMALS: patient oriented x3 Urinary Catheter Management: Baker: Cath Placed During This Visit: yes Reason for Continuing Indwelling Catheter: Accurate Measurement of Urinary Output in Critically Ill Patients Urinary Catheter Date of Insertion: 11/26/21 Urinary Catheter Time of Insertion: 21:50 Data : 11/27/21 02:23 11/27/21 02:23 Micro: Microbiology 11/25/21 17:32 Blood Culture - Preliminary Blood NEGATIVE TO DATE 11/25/21 17:17 Blood Culture - Preliminary Blood NEGATIVE TO DATE A&P Assessment and plan (1) Respiratory failure with hypoxia and hypercapnia: Status: Acute (2) CHF exacerbation: Status: Acute (3) COPD (chronic obstructive pulmonary disease): Status: Acute (4) Hypothyroidism: Status: Acute Plan 71 year old female with past medical history of hypertension COPD, hypothyroidism, heart failure, CAD, was brought in from the skilled nursing with chief complaint of worsening shortness of breath going on for the last 3 to 4 days. Assessment: Acute on chronic hypoxic hypercapnic respiratory failure likely secondary to COPD exacerbation, decompensated heart failure, pneumonia. Decompensated heart failure with preserved ejection fraction LUCA on CKD likely secondary to cardiorenal syndrome Hypertension Hypothyroidism COPD Mild pulmonary hypertension Plan: 2D echo: ? LV systolic function is normal with EF of ?50 to 55%. Grade 1 diastolic dysfunction. Grossly RV is dilated. Mild tricuspid regurgitation. Procalcitonin: Normal Blood culture negative till date Sputum gram stain and culture: COVID PCR is negative Continue ceftriaxone azithromycin for now Lasix 40 mg IV daily Solu-Medrol 40 mg I.V daily Continue levothyroxine Continue Plavix, carvedilol, Cardizem Continue DuoNebs Continue BiPAP Monitor ABG CODE STATUS: AND DVT prophylaxis: On Lovenox Attestations Medical Necessity Statement*: Patient is still in hospital for management of respiratory failure. Coding Level of Care Code Acute Scanner Operator for Chg Fwd Exam Expanded Problem Focused Diagnoses Respiratory failure with hypoxia and hypercapnia J96.91; J96.92 CHF exacerbation I50.9 COPD (chronic obstructive pulmonary disease) J44.9 Hypothyroidism E03.9
[2021-11-27] MEDS: azithromycin 500 MG in sodium chloride 0.9% 250 ML 250 MG IV (16:17)
[2021-11-27] MEDS: dilTIAZem ER (24HR) 120 mg Capsule PO (18:30)
--- NOTE | 2021-11-27 19:12 | PC.NURSE ---
Shift Note Frequent safety and comfort rounds continue. Orders and/or nursing care completed as indicated. Patient monitored for response to intervention and treatment(s). Education provided includes education about medications upon administration, Bipap, and NC, Baker catheter care, CT exam, importance of turning and position changes to prevent pressure injury, and outcome goals; as well as Dr. Mcallister's orders throughout shift. Patient verbalized understanding of all teachings. Patient refuses heel protectors and Anti-Embolic stockings at this time.
[2021-11-28] VITALS (26 sets, daily range): BP systolic 105–162; BP diastolic 55–83; PULSE 48–66; RESP 12–21; TEMP 36.6–37; O2SAT 94–100
[2021-11-28 04:13] LABS: Hematocrit 35.1 % (37.0-47.0); Hemoglobin 9.9 g/dL (11.5-15.3); Lymphocytes # 1.3 10^3/uL (0.8-4.8); Lymphocytes % 21.5 %; Mean Corpuscular HGB Conc 28.2 g/dL (30.0-36.0); Mean Corpuscular Hemoglobin 27.5 pg (28.0-34.0); Mean Corpuscular Volume 97.5 fl (81-99); Mean Platelet Volume 9.5 fL (7.4-10.4); Monocytes # 0.7 10^3/uL (0.2-0.9); Monocytes % 12.1 %; Neutrophils # 3.99 10^3/uL (1.8-7.7); Neutrophils % 65.9 %; Nucleated Red Blood Cells % 0 %; Platelet Count 236 10^3/cmm (130-400); Red Cell Distribution Width 13.9 % (12.1-15.1); White Blood Count 6.1 10^3/uL (4.0-10.0)
[2021-11-28] MEDS: ipratropium-albuterol 3 mL Neb INHALATION ×2 (04:17→08:24)
[2021-11-28 05:52] LABS: Alanine Aminotransferase 7 U/L (0-33); Albumin Level 2.9 g/dL (3.5-5.2); Alkaline Phosphatase 62 U/L (35-105); Aspartate Amino Transferase 13 U/L (0-32); Blood Urea Nitrogen 32 mg/dL (8-23); Calcium 8.4 mg/dL (8.5-10.5); Chloride 93 mmol/L (98-107); Globulin 4.2 g/dL (1.3-4.6); Glucose 89 mg/dL (65-115); Osmolality Calculated 298 mOsm/kg (285-295); Sodium 141 mmol/L (136-145); Total Bilirubin 0.2 mg/dL (0.15-1.2); Total Protein 7.1 g/dL (6.6-8.7)
[2021-11-28 06:07] LABS: Anion Gap 13.8 (5-19); Carbon Dioxide 38 mmol/L (22-29); Potassium 3.8 mmol/L (3.5-5.1)
[2021-11-28] MEDS: levothyroxine 125 mcg Tablet PO (06:57)
[2021-11-28] MEDS: dilTIAZem ER (24HR) 120 mg Capsule PO (08:44)
[2021-11-28] MEDS: docusate sodium 100 mg Capsule PO (08:44)
[2021-11-28] MEDS: carvedilol 6.25 mg Tablet PO (08:44)
[2021-11-28] MEDS: acetaZOLAMIDE 250 mg Tablet PO (08:44)
[2021-11-28] MEDS: FUROsemide 10 mg/mL SDV 4mL 40 MG IVP (08:45)
[2021-11-28] MEDS: clopidogrel 75 mg Tablet PO (08:45)
--- NOTE | 2021-11-28 11:04 | PM.DCS ---
Discharge Providers Date of Admission: 11/25/21 14:06 Date of Discharge: November 28, 2021 Attending Provider at Admission: Hadley Mcallister MD Attending Provider at Discharge: Hadley Mcallister MD Primary Care Provider: MALLORY Linares Diagnoses at Discharge Discharge Diagnosis (1) Respiratory failure with hypoxia and hypercapnia: Status: Acute (2) CHF exacerbation: Status: Acute (3) COPD (chronic obstructive pulmonary disease): Status: Acute (4) Hypothyroidism: Status: Acute Reason for Visit Reason for Visit: resp distress Hospital Course Hospital Course Monica Mccauley is a 71 year old female with past medical history of hypertension COPD, hypothyroidism, heart failure, CAD, was [facility] with chief complaint of worsening shortness of breath going on for the last 3 to 4 days. She was admitted for the management of Acute on chronic hypoxic hypercapnic respiratory failure likely secondary to COPD exacerbation, decompensated heart failure with preserved ejection fraction, pneumonia. She was kept on BiPAP, DuoNebs, steroids, antibiotics, IV Lasix to which she responded well at the time of discharge she was saturating well on 3 Ls supplemental oxygen. She was afebrile hemodynamically stable, alert awake oriented*3. 2D echo done during the hospital stay: LV systolic function is normal with EF of ?50 to 55%.?Grade 1 diastolic dysfunction.?Grossly RV is dilated.?Mild tricuspid regurgitation. CTA chest:?Significantly limited evaluation of the thorax on this examination due to body habitus. Centrally no large pulmonary embolism.Mild pulmonary hypertension and RIGHT heart strain.Multi lobar pulmonary opacifications. Probably combination of pneumonia, pneumonitis and atelectasis. Very small LEFT pleural effusion. Patient has been discharged on Lasix 40 mg p.o. twice daily, since the heart rate was on the lower side, carvedilol has been stopped, Cardizem dose has been decreased to half. She was also discharged on prednisone for 5 days as well as levofloxacin for additional 5 days to complete the antibiotic course for pneumonia. Overall patient has responded well to above medical management and is being discharged in stable condition to [facility]. Physical Exam Const: COMMON NORMALS: patient oriented x3 Resp: COMMON NORMALS: clear to auscultation bilaterally AUSCULTATION: clear to auscultation bilaterally Cardio: COMMON NORMALS: regular rate, regular rhythm, S1 normal heart sound present, S2 normal heart sound present, No gallops present (Cardio), No murmurs present (Cardio), No rub (Cardio) and Peripheral pulses 2+ throughout RATE: regular rate RHYTHM: regular rhythm HEART SOUNDS: S1 normal heart sound present and S2 normal heart sound present PERIPHERAL PULSES: Peripheral pulses 2+ throughout GI: COMMON NORMALS: Normal to inspection, nondistended, normoactive bowel sounds present, Soft to palpation, non-tender, No hepatosplenomegaly present and no masses AUSCULTATION: Yes normoactive bowel sounds PALPATION: Yes Soft to palpation and Yes No hepatosplenomegaly present RECTAL EXAM: deferred Extremity: COMMON NORMALS: no clubbing, cyanosis or edema NARRATIVE EXTREMITY EXAM: Trace bilateral lower extremity pitting edema Neuro: COMMON NORMALS: patient oriented x3 Urinary Catheter Management: Baker: Cath Placed During This Visit: yes Reason for Continuing Indwelling Catheter: Accurate Measurement of Urinary Output in Critically Ill Patients Urinary Catheter Date of Insertion: 11/26/21 Urinary Catheter Time of Insertion: 21:50 Discharge Data Studies Completed and Pending Completed Studies During Hospitalization Category Date Time Status CT head wo con* [id number] Routine Cat Scan 11/27/21 00:03 Completed CTA chest [CT angio chest PE protcl [id number]] Stat Cat Scan 11/25/21 11:15 Completed XR chest 1V portable [id number] Stat Exams 11/25/21 11:04 Completed CV. echo wo/w contrast [id number] Routine Ultrasound 11/25/21 14:20 Completed Pending at discharge Category Date Time Status Blood Culture Routine Lab 11/25/21 17:32 Results MRSA by PCR Routine Lab 11/27/21 17:43 Received Sputum Culture and Gram Stain Routine Lab 11/25/21 14:21 Uncollected Radiology Impressions Chest X-Ray 11/25/21 11:04 IMPRESSION: Abnormal chest most compatible with congestive heart failure. Chest CTA 11/25/21 11:15 IMPRESSION: 1. Significantly limited evaluation of the thorax on this examination due to body habitus. 2. Centrally no large pulmonary embolism. 3. Mild pulmonary hypertension and RIGHT heart strain. 4. Multi lobar pulmonary opacifications. Probably combination of pneumonia, pneumonitis and atelectasis. 5. Very small LEFT pleural effusion. Head CT 11/27/21 00:03 IMPRESSION: 1. No evidence of intracranial hemorrhage or mass effect. 2. Moderate small vessel changes. Moderate parenchymal volume loss. 3. Chronic infarcts as described above. 4. No acute intracranial findings. Laboratory Results WBC 6.1 10^3/uL (4.0-10.0) 11/28/21 03:13 RBC 3.60 10^6/uL (4.1-5.3) L 11/28/21 03:13 Hgb 9.9 g/dL (11.5-15.3) L 11/28/21 03:13 Hct 35.1 % (37.0-47.0) L 11/28/21 03:13 MCV 97.5 fl (81-99) 11/28/21 03:13 MCH 27.5 pg (28.0-34.0) L 11/28/21 03:13 MCHC 28.2 g/dL (30.0-36.0) L 11/28/21 03:13 RDW 13.9 % (12.1-15.1) 11/28/21 03:13 Plt Count 236 10^3/cmm (130-400) 11/28/21 03:13 MPV 9.5 fL (7.4-10.4) 11/28/21 03:13 Neut % (Auto) 65.9 % 11/28/21 03:13 Lymph % (Auto) 21.5 % 11/28/21 03:13 Chester % (Auto) 12.1 % 11/28/21 03:13 Eos % (Auto) 0.0 % 11/28/21 03:13 Baso % (Auto) 0.0 % 11/28/21 03:13 Neut # (Auto) 3.99 10^3/uL (1.8-7.7) 11/28/21 03:13 Lymph # (Auto) 1.3 10^3/uL (0.8-4.8) 11/28/21 03:13 Chester # (Auto) 0.7 10^3/uL (0.2-0.9) 11/28/21 03:13 Eos # (Auto) 0.0 10^3/uL (0.0-0.8) 11/28/21 03:13 Baso # (Auto) 0.0 10^3/uL (0.0-0.1) 11/28/21 03:13 Nucleated RBC % (auto) 0 % 11/28/21 03:13 Nucleated RBCs # 0.0 /100WBC 11/28/21 03:13 Specimen Type Arterial 11/27/21 05:13 Sample Site Radial, right 11/27/21 05:13 ABG pH 7.50 (7.35-7.45) H 11/27/21 05:13 ABG pCO2 61.3 mmHg (35-45) H* 11/27/21 05:13 ABG pO2 58.6 mmHg (80.0-100.0) L 11/27/21 05:13 ABG HCO3 47.4 mmol/L (22-26) H 11/27/21 05:13 ABG O2 Saturation 92.0 11/27/21 05:13 ABG Base Excess 20.5 mmol/L (-2.0-2.0) H 11/27/21 05:13 Carson Test Pos 11/27/21 05:13 A-a O2 Gradient 16.4 mmHg (5-10) H 11/27/21 05:13 Hematocrit 41.1 % (37-47) 11/27/21 05:13 Hgb O2 Saturation 90.3 % (95-100) L 11/27/21 05:13 Carboxyhemoglobin 1.2 %THgb (0.4-20.1) 11/27/21 05:13 Methemoglobin 0.7 % (0.4-1.5) 11/27/21 05:13 Total Hemoglobin 13.4 g/dL (12-16) 11/27/21 05:13 Sodium 143.0 mmol/L (131-143) 11/27/21 05:13 Potassium 4.1 mmol/L (3.5-5.0) 11/27/21 05:13 Glucose 94.0 mg/dL (70-115) 11/27/21 05:13 Ionized Calcium 1.0 mmol/L (1.1-1.4) L 11/27/21 05:13 O2 Delivery Device Bipap 11/27/21 05:13 O2 Liters/Min 50.0 % 11/25/21 12:08 FiO2 36.0 % 11/27/21 05:13 Nurse Liaison ID Kings 11/27/21 05:13 Sodium 141 mmol/L (136-145) 11/28/21 05:15 Potassium 3.8 mmol/L (3.5-5.1) 11/28/21 05:15 Chloride 93 mmol/L (98-107) L 11/28/21 05:15 Carbon Dioxide 38 mmol/L (22-29) H 11/28/21 05:15 Anion Gap 13.8 (5-19) 11/28/21 05:15 BUN 32 mg/dL (8-23) H 11/28/21 05:15 Creatinine 1.3 mg/dL (0.5-0.9) H 11/28/21 05:15 GFR Calculation Not Reportable 11/28/21 05:15 Glucose 89 mg/dL (65-115) 11/28/21 05:15 Calculated Osmolality 298 mOsm/kg (285-295) H 11/28/21 05:15 Lactate 1.4 mmol/L (0.5-2.2) 11/25/21 00:24 Calcium 8.4 mg/dL (8.5-10.5) L 11/28/21 05:15 Phosphorus 5.0 mg/dL (2.5-4.5) H 11/25/21 00:24 Magnesium 2.0 mg/dL (1.7-2.3) 11/26/21 03:31 Total Bilirubin 0.2 mg/dL (0.15-1.2) 11/28/21 05:15 AST 13 U/L (0-32) 11/28/21 05:15 ALT 7 U/L (0-33) 11/28/21 05:15 Alkaline Phosphatase 62 U/L (35-105) 11/28/21 05:15 Troponin T Baseline 28 ng/L (0-10) H 11/25/21 11:25 Troponin T 120 Minute 26.92 ng/L (0-10) H 11/25/21 13:45 Delta Troponin T -1.08 ABS# (0-10) L 11/25/21 13:45 Troponin T Hi Sens 6Hr 29.87 ng/L (0-10) H 11/25/21 17:32 Troponin T Hi Sens 6Hr Delta 1.87 ng/L (0-12) 11/25/21 17:32 NT-Pro-B Natriuret Pep 2338 pg/mL (0-125) H 11/25/21 11:25 Total Protein 7.1 g/dL (6.6-8.7) 11/28/21 05:15 Albumin 2.9 g/dL (3.5-5.2) L 11/28/21 05:15 Globulin 4.2 g/dL (1.3-4.6) 11/28/21 05:15 Lipase 58 U/L (13-60) 11/25/21 11:25 Procalcitonin 0.29 ng/mL (0-0.5) 11/26/21 00:24 TSH 1.52 uIU/mL (0.27-4.20) 11/25/21 00:24 Coronavirus 229E (PCR) Not detected (NOT DETECT) 11/25/21 11:30 SARS-CoV-2 (PCR) Not detected (NOT DETECT) 11/25/21 11:30 Vitals Last Vital Signs Temp 98.6 F 11/28/21 04:00 Pulse 57 L 11/28/21 09:00 Resp 12 11/28/21 09:00 BP 117/66 11/28/21 08:00 Pulse Ox 99 11/28/21 09:00 O2 Del Method 11/28/21 08:00 O2 Flow Rate 2.5 11/28/21 08:00 FiO2 36 11/28/21 08:00 Discharge Plan Discharge Patient Disposition: Xfer SNF Condition: Stable Prescriptions: New Lasix 40 mg tablet 40 mg PO BID 30 Days Qty: 60 3RF Cardizem CD 120 mg capsule,extended release 24hr 120 mg PO DAILY 30 Days Qty: 30 3RF levofloxacin 500 mg tablet 500 mg PO DAILY 5 Days Qty: 7 0RF prednisone 20 mg tablet 40 mg PO DAILY 5 Days Qty: 10 0RF Continued acetaminophen 325 mg Tablet 650 mg PO Q6H MDD 4000mg PRN (Reason: Pain) atorvastatin 10 mg Tablet 5 mg PO DAILY@1999 sennosides-docusate sodium [Senna-S] 8.6-50 mg Tablet 1 tab PO BID@, clopidogrel [Plavix] 75 mg Tablet 75 mg PO DAILY@ tramadol 50 mg Tablet 50 mg PO Q6H PRN (Reason: Pain) alprazolam [Xanax] 0.25 mg Tablet 0.25 mg PO Q8H PRN (Reason: Anxiety) levothyroxine 125 mcg Tablet 125 mcg PO DAILY@30 docusate sodium 100 mg Capsule 100 mg PO BID@, albuterol sulfate 2.5 mg /3 mL (0.083 %) solution for nebulization 2.5 mg inhalation Q4H PRN (Reason: Dyspnea) Rx Instructions: until 11/28/21 23:59 Vitamin B-12 1,000 mcg Tablet 1,000 mcg PO DAILY@07 Vicks Vaporub 4.7-1.2-2.6 % Ointment 1 applic TOPICAL Q24H PRN (Reason: prophylaxis) Discontinued furosemide [Lasix] 40 mg Tablet 40 mg PO DAILY@07 carvedilol 6.25 mg Tablet 6.25 mg PO BID@, Rx Instructions: must administer with a meal/food diltiazem HCl 240 mg Tablet Extended Release 24 Hr 240 mg PO DAILY@07 Discharge Orders: Discharge Order (Routine); Ordered 11/28/21 Ordered By: aHdley Mcallister Referrals: [facility] [Other] [facility] [Outside] Patient Instructions: COPD, Heart Failure (DC), CHF Stoplight, COPD Stoplight, Opioid Safety Discharge Attestations Time Spent in Discharge Care*: less than 30 min Quality Metrics Clinical Quality Measures [ No reported AMI, CVA or VTE this stay] Coding Level of Care Code Acute Chg FW DC note Exam Detailed Diagnoses Respiratory failure with hypoxia and hypercapnia J96.91; J96.92 CHF exacerbation I50.9 COPD (chronic obstructive pulmonary disease) J44.9 Hypothyroidism E03.9
--- NOTE | 2021-11-28 12:37 | PC.SOCIAL ---
IMM update IMM updated with patient. Verbalized an understanding. Copy Pg 2 provided. Initialled, dated, timed, and placed in chart.
--- NOTE | 2021-11-28 13:12 | PC.CHAP ---
Pastoral Care Encounter/Spiritual Assessment Type of Contact [] Declined bellstaff visit [] Patient/Family/Request visit [] Outpatient visit [] Follow-up visit [] Physician referral [] Code/Alert [x] Routine visit [] Staff referral [] Actively dying [] Patient sleeping [] Family support [] [] Out of room [] Palliative care [] [] Receiving care in room [] Pre-surgical visit [] Trauma [] Long length of stay [x] ICU visit [x] Other: requesting assistance from staff Relational/Emotional Strength [] Patient feels connected with others/family/visitors/staff [] Distress [] Loneliness/isolation [] Abandonment Spirituality of Patient [] Person of [place] [] Attends Nondenominational of their [place] [] Believes in Prayer [] Reads Bible or Alevism materials [] There are Spiritual issues to be addressed [employer] Manager Interventions [x] Prayer [] Active listening [] Non-anxious presence [] Spiritual/emotional support [] Crisis/trauma care [] Spiritual counseling [] Bereavement support [] Provided bereavement packet [] Provided Bible/devotional materials [] Provided toy/stuffed animal, coloring book to patient or family member [] Provided Communion [] Anointing/Adin [] Salvation [x] Completed spiritual assessment [] Other: Impact on Illness or Injury [] Angry [] Fearful [] Anxious [] Often cries [] Exhaustion [] Unable to work [] Unable to attend amish [] Unable to walk/stand [] Unable to read [] Unable to drive [] Unable to eat/drink [] Unable to sleep [] Unable to be with family [] Patient intubated [] Other: Summary Time spent with patient
--- NOTE | 2021-11-28 15:38 | PC.NURSE ---
pending discharge awaiting ambulance for transport
== END 2021-11-28 18:01 | disposition skilled nursing facility (03) | DRG 291 ==
LOC: ER 13:39 → ICU 22:59
PROVIDERS: Family Medicine; Admitting Provider Internal Medicine; Emergency Provider Emergency Medicine; Visit Provider Internal Medicine
DX: I11.0 Hypertensive heart disease with heart failure (principal); I50.33 Acute on chronic diastolic (congestive) heart failure; J96.21 Acute and chronic respiratory failure with hypoxia; J18.9 Pneumonia, unspecified organism; J96.22 Acute and chronic respiratory failure with hypercapnia; J44.0 Chronic obstructive pulmonary disease with (acute) lower respiratory infection; J44.1 Chronic obstructive pulmonary disease with (acute) exacerbation; Z68.41 Body mass index [BMI] 40.0-44.9, adult; N17.9 Acute kidney failure, unspecified; R56.9 Unspecified convulsions; I07.1 Rheumatic tricuspid insufficiency; E03.9 Hypothyroidism, unspecified; I25.10 Atherosclerotic heart disease of native coronary artery without angina pectoris; I27.20 Pulmonary hypertension, unspecified; E66.01 Morbid (severe) obesity due to excess calories
CPT/HCPCS: 36415; 36600; 51702; 70450; 71045; 71275; 80051; 80053; 82330; 82805; 83605; 83690; 83735; 83880; 84100; 84145; 84443; 84484; 85025; 87040; 87635; 87641; 93005; 93306; 94640; 94660; 96365; 96367; 96372; 96375; 99291; C8929; J0456; J0696; J1650; J1815; J1940; J1953; J2920; J2930; J7050; Q9956; Q9967

== ENCOUNTER 2022-01-12 04:45 | Outpatient (CLI) | payer MEDICARE, MEDICAID, SELFPAY ==
[2022-01-12 05:12] LABS: Basophils % 0.3 %; Eosinophils # 0.1 10^3/uL (0.0-0.8); Eosinophils % 0.6 %; Hematocrit 35.8 % (37.0-47.0); Hemoglobin 10.4 g/dL (11.5-15.3); Lymphocytes # 1.9 10^3/uL (0.8-4.8); Lymphocytes % 19.5 %; Mean Corpuscular HGB Conc 29.1 g/dL (30.0-36.0); Mean Corpuscular Hemoglobin 27.4 pg (28.0-34.0); Mean Corpuscular Volume 94.5 fl (81-99); Mean Platelet Volume 8.8 fL (7.4-10.4); Monocytes # 0.7 10^3/uL (0.2-0.9); Monocytes % 6.9 %; Neutrophils # 6.99 10^3/uL (1.8-7.7); Neutrophils % 72.1 %; Nucleated Red Blood Cells % 0 %; Platelet Count 269 10^3/cmm (130-400); Red Blood Count 3.79 10^6/uL (4.1-5.3); Red Cell Distribution Width 13.7 % (12.1-15.1); White Blood Count 9.7 10^3/uL (4.0-10.0)
[2022-01-12 05:33] LABS: Alanine Aminotransferase 7 U/L (0-33); Albumin Level 2.9 g/dL (3.5-5.2); Alkaline Phosphatase 90 U/L (35-105); Anion Gap 9.9 (5-19); Aspartate Amino Transferase 9 U/L (0-32); Blood Urea Nitrogen 15 mg/dL (8-23); Calcium 8.8 mg/dL (8.5-10.5); Carbon Dioxide 38 mmol/L (22-29); Chloride 92 mmol/L (98-107); Globulin 3.3 g/dL (1.3-4.6); Glucose 89 mg/dL (65-115); Osmolality Calculated 282 mOsm/kg (285-295); Potassium 3.9 mmol/L (3.5-5.1); Sodium 136 mmol/L (136-145); Total Bilirubin 0.3 mg/dL (0.15-1.2); Total Protein 6.2 g/dL (6.6-8.7)
== END 2022-01-12 04:46 | disposition home or self-care (01) ==
PROVIDERS: Visit Provider Nurse Practitioner Family
DX: I10 Essential (primary) hypertension (principal)
CPT/HCPCS: 80053; 85025